=== PATIENT | female | born 1950 | race Caucasian/White ===

== ENCOUNTER 2017-09-04 11:16 | Inpatient (IN) | payer OTHER ==
[~2017-09-04] VITALS: Ht 157.5 cm; Wt 53.4 kg
[2017-09-04 12:27] LABS: BASO % 0.3 %; BASO ABS # 0.02 K/uL (0-0.2); EOS % 1.1 %; EOS ABS # 0.08 K/uL (0-0.5); HEMOGLOBIN 14.9 g/dL (12.0-16.0); IG# 0.02 K/uL (0.00-0.02); LYMPH % 25.6 %; LYMPH ABS # 1.85 K/uL (1.2-3.4); MEAN CELL VOLUME 84.8 fL (80-100); MEAN CORPUSCULAR HEMOGLOBIN 29.4 pg (25-34); MEAN CORPUSCULAR HGB CONC 34.7 g/dl (32-36); MEAN PLATELET VOLUME 9.3 fL (7.4-10.4); MONO % 6.6 %; MONO ABS # 0.48 K/uL (0.11-0.59); NEUT % 66.1 %; NEUT ABS # 4.77 K/uL (1.4-6.5); PLATELET COUNT 302 K/uL (130-400); RED CELL DISTRIBUTION WIDTH CV 13.4 % (11.5-14.5); RED CELL DISTRIBUTION WIDTH SD 41.3 fL (36.4-46.3); WHITE BLOOD COUNT 7.22 K/uL (4.8-10.8)
[2017-09-04 12:43] LABS: ALBUMIN 3.5 gm/dl (3.4-5.0); ALT/SGPT 12 U/L (12-78); AST/SGOT 16 U/L (15-37); BLOOD UREA NITROGEN 9 mg/dl (7-18); CARBON DIOXIDE 27 mmol/L (21-32); GLUCOSE 94 mg/dl (70-99); LIPASE 168 U/L (73-393); POTASSIUM 3.8 mmol/L (3.5-5.1); SODIUM 135 mmol/L (136-145)
[2017-09-04 12:48] LABS: ALKALINE PHOSPHATASE 95 U/L (45-117); TOTAL PROTEIN 8.1 gm/dl (6.4-8.2)
--- NOTE | 2017-09-04 12:57 | DIAGNOSTIC IMAGING REPORT ---
L KNEE 3 VIEWS CLINICAL HISTORY: Left knee pain following fall. COMPARISON: None FINDINGS: Left femoral intramedullary erica with distal screws is partially imaged. Cortical thickening of the distal shaft of the left femur is chronic. Relative lucency favors osteopenia. There is an acute nondisplaced inferior patellar fracture. No additional fractures are present. IMPRESSION: 1. Acute nondisplaced inferior patellar fracture. 2. Small left knee joint effusion. 3. Relative lucency of visualized skeletal structures which favors osteopenia. Electronically signed by: Maciej Zafar M.D. 09/04/2017 12:56 PM Dictated Date/Time: 09/04/2017 12:55 PM
--- NOTE | 2017-09-04 12:58 | DIAGNOSTIC IMAGING REPORT ---
L SHOULDER MIN 2 VIEWS ROUTINE CLINICAL HISTORY: Left shoulder pain following fall. COMPARISON: None FINDINGS: Alignment of the left shoulder arthroplasty is in anatomic. Osteophytosis/heterotopic bone formation along the inferior glenoid is noted. No acute fracture is present. Alignment of the left acromioclavicular joint is anatomic. IMPRESSION: 1. No acute fracture or dislocation of the left shoulder. 2. Status post left shoulder arthroplasty. Hardware intact. Electronically signed by: Maciej Zafar M.D. 09/04/2017 12:57 PM Dictated Date/Time: 09/04/2017 12:56 PM
--- NOTE | 2017-09-04 13:00 | DIAGNOSTIC IMAGING REPORT ---
CHEST ONE VIEW PORTABLE HISTORY: Left-sided chest pain. fall COMPARISON: None. FINDINGS: The lungs are clear. Cardiac silhouette is normal in size. No pleural effusions. No pneumothorax. Left shoulder prosthesis. IMPRESSION: No acute process. Electronically signed by: Addison Arriola M.D. 09/04/2017 12:59 PM Dictated Date/Time: 09/04/2017 12:57 PM
--- NOTE | 2017-09-04 13:00 | DIAGNOSTIC IMAGING REPORT ---
PELVIS 1 OR 2 VIEW ROUTINE CLINICAL HISTORY: Fall. COMPARISON STUDY: No previous studies for comparison. FINDINGS: The sacroiliac joints and symphysis pubis are intact. No acute fracture within the pelvis or hips is identified. Left femoral internal fixation with trochanteric nail is noted. Healed intertrochanteric fracture is noted. IMPRESSION: 1. No acute fracture within the pelvis or hips. 2. Healed left femoral intertrochanteric fracture status post internal fixation. Electronically signed by: Maciej Zafar M.D. 09/04/2017 12:59 PM Dictated Date/Time: 09/04/2017 12:58 PM
[2017-09-04] MEDS ORDERED: MoRPHine SULFATE 4 MG/ML 1 ML CARP\\VIAL IV STA ×2 (14:32→15:11)
[2017-09-04] MEDS ORDERED: LABETALOL HCL IV 5 MG/ML 20ML IV STA (16:02)
[2017-09-04] MEDS ORDERED: HydrALAZINE HCL 20 MG/ML VIAL IV. STA (16:39)
[2017-09-04] MEDS ORDERED: HydrALAZINE HCL 20 MG/ML VIAL ONE (16:45)
[2017-09-04] MEDS ORDERED: ONDANSETRON INJ 2 MG/ML 2 ML VIAL IV PRN (17:15)
--- NOTE | 2017-09-04 18:12 | EMERGENCY ROOM VISIT NOTE ---
History Report prepared by Víctoribdiya: Fernie Aldrich Under the Supervision of: Dr. Chato Julian D.O. First contact with patient: 11:48 Chief Complaint: FALL Stated Complaint: FALL History of Present Illness The patient is a 67 year old female who presents to the Emergency Room with complaints of constant left knee pain s/p fall occurring just prior to arrival. The patient also complains of left shoulder pain. She states that she fell while walking [place] the [place] at the hospital when she fell. She states that it is normal for her to fall, as she has some difficulty walking since a previous hip fracture. The patient did not feel dizzy or lightheaded prior to falling. She states that she fell straight down and landed on her left shoulder and left knee. She did not lost consciousness. Patient denies any chest pain or shortness of breath. No weakness or numbness in her arms or legs. Source of History: patient Onset: Just prior to arrival Position: knee (left) Quality: other (pain s/p fall) Timing: constant Associated Symptoms: No LOC Note: Positive: left shoulder pain. Negative: dizziness or lightheadedness. Review of Systems See HPI for pertinent positives & negatives. A total of 10 systems reviewed and were otherwise negative. Past Medical & Surgical Medical Problems: (1) Hip fracture, left (2) HTN (hypertension) (3) Shoulder fracture, left Family History No pertinent family history stated. Social History Smoking Status: Current Every Day Smoker Marital Status: Current/Historical Medications No Active Prescriptions or Reported Meds Allergies Coded Allergies: No Known Allergies (Unverified , 09/04/17) Physical Exam Vital Signs Date Time Temp Pulse Resp B/P (MAP) Pulse Ox O2 Delivery O2 Flow Rate FiO2 09/04/17 17:23 75 18 189/86 100 09/04/17 17:01 75 100 09/04/17 17:00 189/86 09/04/17 16:56 81 100 09/04/17 16:51 78 198/122 100 09/04/17 16:50 74 18 198/122 100 Room Air 09/04/17 16:46 75 213/111 100 09/04/17 16:41 72 100 09/04/17 16:36 77 100 09/04/17 16:32 220/119 09/04/17 16:31 78 224/100 100 4/4/18 16:26 71 98 09/04/17 16:21 70 99 09/04/17 16:16 76 100 09/04/17 16:11 81 100 09/04/17 16:06 75 100 09/04/17 16:01 83 236/114 100 09/04/17 15:56 75 100 09/04/17 15:51 75 99 09/04/17 15:46 73 100 09/04/17 15:41 81 100 09/04/17 15:40 238/110 09/04/17 15:36 82 100 09/04/17 15:31 80 202/114 100 09/04/17 15:30 224/118 09/04/17 15:26 77 100 09/04/17 15:21 83 100 09/04/17 15:18 229/114 09/04/17 15:16 78 100 09/04/17 15:11 80 100 09/04/17 15:06 79 100 09/04/17 15:03 246/102 09/04/17 14:31 225/140 09/04/17 14:19 80 20 217/108 93 Room Air 09/04/17 14:12 217/108 09/04/17 14:10 193/135 09/04/17 12:27 74 09/04/17 12:02 192/122 09/04/17 11:21 36.5 88 18 154/95 100 Room Air Physical Exam GENERAL: Sitting up in bed, holding left shoulder with right arm, mild distress , nontoxic. HEAD: normal cephalic. Small abrasion over the middle upper portion of the lip. EYE EXAM: normal conjunctiva, PERRL and EOM's grossly intact OROPHARYNX: no exudate, no erythema, lips, buccal mucosa, and tongue normal and mucous membranes are moist EARS: TMs clear b/l NECK: supple, no nuchal rigidity, no adenopathy, non-tender CHEST: stable to compression anteriorly and posteriorly LUNGS: clear to auscultation. Normal chest wall mechanics HEART: no murmurs, S1 normal and S2 normal ABDOMEN: abdomen soft, non-tender, normo-active bowel sounds, no masses, no rebound or guarding. PELVIS: stable to compression anteriorly and posteriorly BACK: Back is symmetrical on inspection and there is no deformity, no midline tenderness, no CVA tenderness. UPPER EXTREMITIES: full active and passive range of motion of all joints without tenderness to palpation with exception of left humerus which is acutely tender to palpation. LOWER EXTREMITIES: full active and passive range of motion of all joints without tenderness to palpation with exception of left knee which is acutely tender to palpation with abrasion and contusion. NEURO EXAM: Normal sensorium, cranial nerves II-XII grossly intact, normal speech, no gross weakness of arms. GCS: 15. Medical Decision & Procedures ER Provider Diagnostic Interpretation: Radiology results as stated below per my review and the radiologist's interpretation: L SHOULDER MIN 2 VIEWS ROUTINE FINDINGS: Alignment of the left shoulder arthroplasty is in anatomic. Osteophytosis/heterotopic bone formation along the inferior glenoid is noted. No acute fracture is present. Alignment of the left acromioclavicular joint is anatomic. IMPRESSION: 1. No acute fracture or dislocation of the left shoulder. 2. Status post left shoulder arthroplasty. Hardware intact. Electronically signed by: Maciej Zafar M.D. 09/04/2017 12:57 PM PELVIS 1 OR 2 VIEW ROUTINE FINDINGS: The sacroiliac joints and symphysis pubis are intact. No acute fracture within the pelvis or hips is identified. Left femoral internal fixation with trochanteric nail is noted. Healed intertrochanteric fracture is noted. IMPRESSION: 1. No acute fracture within the pelvis or hips. 2. Healed left femoral intertrochanteric fracture status post internal fixation. Electronically signed by: Maciej Zafar M.D. 09/04/2017 12:59 PM L KNEE 3 VIEWS FINDINGS: Left femoral intramedullary erica with distal screws is partially imaged. Cortical thickening of the distal shaft of the left femur is chronic. Relative lucency favors osteopenia. There is an acute nondisplaced inferior patellar fracture. No additional fractures are present. IMPRESSION: 1. Acute nondisplaced inferior patellar fracture. 2. Small left knee joint effusion. 3. Relative lucency of visualized skeletal structures which favors osteopenia. Electronically signed by: Maciej Zafar M.D. 09/04/2017 12:56 PM CHEST ONE VIEW PORTABLE FINDINGS: The lungs are clear. Cardiac silhouette is normal in size. No pleural effusions. No pneumothorax. Left shoulder prosthesis. IMPRESSION: No acute process. Electronically signed by: Addison Arriola M.D. 09/04/2017 12:59 PM Laboratory Results 09/04/17 12:15 Red Blood Count 5.07, Mean Corpuscular Volume 84.8, Mean Corpuscular Hemoglobin 29.4, Mean Corpuscular Hemoglobin Concent 34.7, Mean Platelet Volume 9.3, Neutrophils (%) (Auto) 66.1, Lymphocytes (%) (Auto) 25.6, Monocytes (%) (Auto) 6.6, Eosinophils (%) (Auto) 1.1, Basophils (%) (Auto) 0.3, Neutrophils # (Auto) 4.77, Lymphocytes # (Auto) 1.85, Monocytes # (Auto) 0.48, Eosinophils # (Auto) 0.08, Basophils # (Auto) 0.02 09/04/17 12:15 Test 09/04/17 12:15 09/04/17 18:00 White Blood Count 7.22 K/uL (4.8-10.8) Red Blood Count 5.07 M/uL (4.2-5.4) Hemoglobin 14.9 g/dL (12.0-16.0) Hematocrit 43.0 % (37-47) Mean Corpuscular Volume 84.8 fL (80-100) Mean Corpuscular Hemoglobin 29.4 pg (25-34) Mean Corpuscular Hemoglobin Concent 34.7 g/dl (32-36) Platelet Count 302 K/uL (130-400) Mean Platelet Volume 9.3 fL (7.4-10.4) Neutrophils (%) (Auto) 66.1 % Lymphocytes (%) (Auto) 25.6 % Monocytes (%) (Auto) 6.6 % Eosinophils (%) (Auto) 1.1 % Basophils (%) (Auto) 0.3 % Neutrophils # (Auto) 4.77 K/uL (1.4-6.5) Lymphocytes # (Auto) 1.85 K/uL (1.2-3.4) Monocytes # (Auto) 0.48 K/uL (0.11-0.59) Eosinophils # (Auto) 0.08 K/uL (0-0.5) Basophils # (Auto) 0.02 K/uL (0-0.2) RDW Standard Deviation 41.3 fL (36.4-46.3) RDW Coefficient of Variation 13.4 % (11.5-14.5) Immature Granulocyte % (Auto) 0.3 % Immature Granulocyte # (Auto) 0.02 K/uL (0.00-0.02) Anion Gap 5.0 mmol/L (3-11) Est Creatinine Clear Calc Drug Dose 44.4 ml/min Estimated GFR () 68.5 Estimated GFR (Non- 59.1 BUN/Creatinine Ratio 9.2 (10-20) Calcium Level 9.0 mg/dl (8.5-10.1) Total Bilirubin 0.5 mg/dl (0.2-1) Direct Bilirubin 0.1 mg/dl (0-0.2) Aspartate Amino Transf (AST/SGOT) 16 U/L (15-37) Alanine Aminotransferase (ALT/SGPT) 12 U/L (12-78) Alkaline Phosphatase 95 U/L (45-117) Total Protein 8.1 gm/dl (6.4-8.2) Albumin 3.5 gm/dl (3.4-5.0) Lipase 168 U/L (73-393) Laboratory results per my review. Medications Administered Medications (Trade) Dose Ordered Sig/Radames Route Start Time Stop Time Status Last Admin Dose Admin Morphine Sulfate (MoRPHine SULFATE INJ) 3 mg NOW STAT IV 09/04/17 14:32 09/04/17 14:33 DC 09/04/17 14:49 3 MG Morphine Sulfate (MoRPHine SULFATE INJ) 2 mg NOW STAT IV 09/04/17 15:11 09/04/17 15:12 DC 09/04/17 15:18 2 MG Labetalol HCl (Normodyne IV) 10 mg NOW STAT IV 09/04/17 16:02 09/04/17 16:03 DC 09/04/17 16:15 10 MG Hydralazine HCl (HydrALAZINE INJ) 20 mg STK-MED ONCE .ROUTE 09/04/17 16:45 09/04/17 16:46 DC 09/04/17 16:47 10 MG ECG Per My Interpretation Indication: other (fall) Rate (beats per minute): 89 Rhythm: sinus rhythm Findings: other (Normal axis. Non-specific ST wave change in lateral and inferior leads.) Comparison ECG Date: no prior available ED Course ED COURSE: Vital signs were reviewed and showed hypertension The patients medical record was reviewed The above diagnostic studies were performed and reviewed. ED treatments and interventions as stated above. 1152: The patient was evaluated in room B12B. A complete history and physical examination was performed. 1330: I updated the patient on her results. She is still having pain, and is still hypertensive. 1432: Ordered Morphine Sulfate 3 mg IV. 1511: Ordered Morphine Sulfate 2 mg IV. 1602: Ordered Normodyne 10 mg IV. 1604: Upon reevaluation, the patient is resting. I discussed my findings with the patient and she understands and agrees with the treatment plan. Based on the patients age, coexisting illnesses, exam and lab findings the decision to treat as an inpatient was made. The patient remained stable while under my care. The patient will be evaluated for further management. Medical Decision Differential diagnoses include major intracranial, cervical, spinal, thoracic, abdominal, pelvic and neurologic injury. Fracture, contusion, sprain, strain, laceration, abrasions included as well. Patient is a 67-year-old female who presents the ER following a fall. The family notes that she intermittently falls since she broke her left hip. She has no other complaints. No headaches. She denies passing out. CBC along with BMP, LFTs, bilirubin and troponin was negative. Lipase is normal. X-rays of her knee shows patellar fracture. X-ray of her left shoulder was negative. Throughout her stay she remained persistently hypertensive with systolics in the 200s. She was given morphine and her pain was treated. Blood pressure did not improve. She is supposed be on oral medications but has not taken this for years. With her EKG showing the ST depressions troponin was obtained and was negative. She has no chest pain or shortness of breath. I do favor this likely chronic with her persistently elevated pressure she was given labetalol. Discussed with internal medicine she was admitted for further workup. Medication Reconcilliation Current Medication List: was personally reviewed by me Blood Pressure Screening Patient's blood pressure: Elevated blood pressure Blood pressure disposition: Elevated BP felt to be situational Consults Time Called: 1600 Consulting Physician: Josie DOAN - Joel Hospitalist Returned Call: 1604 I reviewed the patient's case with Josie DOAN. Joel will evaluate the patient for further management. Impression Primary Impression: Patellar fracture Additional Impressions: Fall Hypertension Scribe Attestation The scribe's documentation has been prepared under my direction and personally reviewed by me in its entirety. I confirm that the note above accurately reflects all work, treatment, procedures, and medical decision making performed by me. Departure Information Dispostion Being Evaluated By Hospitalist Prescriptions No Active Prescriptions or Reported Meds Referrals No Doctor, Assigned (PCP) Forms HOME CARE DOCUMENTATION FORM, IMPORTANT VISIT INFORMATION Patient Instructions ED Fx Knee, My [facility] Problem Qualifiers Primary Impression: Patellar fracture Encounter type: initial encounter Fracture type: closed Fracture morphology : unspecified fracture morphology Fracture alignment: nondisplaced Laterality: unspecified laterality Qualified Codes: S82.009A - Unspecified fracture of unspecified patella, initial encounter for closed fracture Additional Impressions: Fall Encounter type: initial encounter Qualified Codes: W19.XXXA - Unspecified fall, initial encounter Hypertension Hypertension type: unspecified Qualified Codes: I10 - Essential (primary) hypertension
[2017-09-04 18:22] VITALS: BP 203/79; PULSE 81; TEMP 36.5; O2SAT 99
[2017-09-04 18:38] VITALS: Ht 157.5 cm; Wt 53.4 kg
--- NOTE | 2017-09-04 18:47 | History and Physical ---
History & Physical Date & Time of Service: Sep 04, 2017 ~16:30 Chief Complaint: Fall Primary Care Physician: Pierce Herrera D.O. History of Present Illness Source: patient 67-year-old female who presents to the ED after suffering a fall and developing left knee pain. Patient was here at the hospital visiting her grandchild. She was walking down the [place] when suddenly her legs give out from under her and she fell landing on her left knee. Patient denies any loss of consciousness or associated lightheadedness or dizziness. No chest pain or shortness of breath. She denies headache and blurred vision. She reports she has been feeling well recently. Patient does report that she self stopped her blood pressure medications over a year ago. No abdominal pain, nausea, vomiting , or diarrhea. She denies fever and chills. No urinary symptoms. In the ED, patient is found to have an acute nondisplaced left patellar fracture. She is also found to have significantly elevated blood pressures with systolics in the 220s. She was given labetalol 10 mg IV without much improvement. I then ordered hydralazine 10 mg IV and blood pressure is slowly starting to come down. Past Medical/Surgical History Medical Problems: (1) Hip fracture, left Permanent Comment: S/P repair Status: Chronic (2) HTN (hypertension) Status: Chronic (3) Shoulder fracture, left Permanent Comment: S/P repair Status: Chronic Family History No significant family history Social History Smoking Status: Current Every Day Smoker Alcohol Use: occasionally Allergies Coded Allergies: No Known Allergies (Unverified , 09/04/17) Home Medications No Active Prescriptions or Reported Meds Review of Systems ROS per HPI, all other systems reviewed and negative Physical Exam Vital Signs Date Time Temp Pulse Resp B/P (MAP) Pulse Ox O2 Delivery O2 Flow Rate FiO2 09/04/17 16:50 74 18 198/122 100 Room Air 09/04/17 16:36 77 100 09/04/17 16:32 220/119 09/04/17 16:31 78 224/100 100 09/04/17 16:26 71 98 09/04/17 16:21 70 99 09/04/17 16:16 76 100 09/04/17 16:11 81 100 09/04/17 16:06 75 100 09/04/17 16:01 83 236/114 100 09/04/17 15:56 75 100 09/04/17 15:51 75 99 09/04/17 15:46 73 100 09/04/17 15:41 81 100 09/04/17 15:40 238/110 09/04/17 15:36 82 100 09/04/17 15:31 80 202/114 100 09/04/17 15:30 224/118 09/04/17 15:26 77 100 09/04/17 15:21 83 100 09/04/17 15:18 229/114 09/04/17 15:16 78 100 09/04/17 15:11 80 100 09/04/17 15:06 79 100 09/04/17 15:03 246/102 09/04/17 14:31 225/140 09/04/17 14:19 80 20 217/108 93 Room Air 09/04/17 14:12 217/108 09/04/17 14:10 193/135 09/04/17 12:27 74 09/04/17 12:02 192/122 09/04/17 11:21 36.5 88 18 154/95 100 Room Air General Appearance: WD/WN, no apparent distress, + thin Head: normocephalic, atraumatic Eyes: normal inspection, EOMI, sclerae normal ENT: hearing grossly normal, + pertinent finding (Mucous membranes moist) Neck: supple, no JVD, trachea midline Respiratory/Chest: lungs clear, normal breath sounds, no respiratory distress Cardiovascular: regular rate, rhythm, no edema, normal peripheral pulses Abdomen/GI: normal bowel sounds, non tender, soft, no organomegaly Extremities/Musculoskelatal: no calf tenderness, normal capillary refill, + pertinent finding (immobilizer in place to left lower extremity) Neurologic/Psych: no motor/sensory deficits, alert, normal mood/affect, oriented x 3 Skin: normal color, warm/dry Diagnostics Laboratory Results Results Past 24 Hours Test 09/04/17 12:15 Range/Units White Blood Count 7.22 4.8-10.8 K/uL Red Blood Count 5.07 4.2-5.4 M/uL Hemoglobin 14.9 12.0-16.0 g/dL Hematocrit 43.0 37-47 % Mean Corpuscular Volume 84.8 80-100 fL Mean Corpuscular Hemoglobin 29.4 25-34 pg Mean Corpuscular Hemoglobin Concent 34.7 32-36 g/dl Platelet Count 302 130-400 K/uL Mean Platelet Volume 9.3 7.4-10.4 fL Neutrophils (%) (Auto) 66.1 % Lymphocytes (%) (Auto) 25.6 % Monocytes (%) (Auto) 6.6 % Eosinophils (%) (Auto) 1.1 % Basophils (%) (Auto) 0.3 % Neutrophils # (Auto) 4.77 1.4-6.5 K/uL Lymphocytes # (Auto) 1.85 1.2-3.4 K/uL Monocytes # (Auto) 0.48 0.11-0.59 K/uL Eosinophils # (Auto) 0.08 0-0.5 K/uL Basophils # (Auto) 0.02 0-0.2 K/uL RDW Standard Deviation 41.3 36.4-46.3 fL RDW Coefficient of Variation 13.4 11.5-14.5 % Immature Granulocyte % (Auto) 0.3 % Immature Granulocyte # (Auto) 0.02 0.00-0.02 K/uL Sodium Level 135 136-145 mmol/L Potassium Level 3.8 3.5-5.1 mmol/L Chloride Level 102 98-107 mmol/L Carbon Dioxide Level 27 21-32 mmol/L Anion Gap 5.0 3-11 mmol/L Blood Urea Nitrogen 9 7-18 mg/dl Creatinine 1.00 0.60-1.20 mg/dl Est Creatinine Clear Calc Drug Dose 44.4 ml/min Estimated GFR () 68.5 Estimated GFR (Non- 59.1 BUN/Creatinine Ratio 9.2 10-20 Random Glucose 94 70-99 mg/dl Calcium Level 9.0 8.5-10.1 mg/dl Total Bilirubin 0.5 0.2-1 mg/dl Direct Bilirubin 0.1 0-0.2 mg/dl Aspartate Amino Transf (AST/SGOT) 16 15-37 U/L Alanine Aminotransferase (ALT/SGPT) 12 12-78 U/L Alkaline Phosphatase 95 45-117 U/L Troponin I < 0.015 0-0.045 ng/ml Total Protein 8.1 6.4-8.2 gm/dl Albumin 3.5 3.4-5.0 gm/dl Lipase 168 73-393 U/L Diagnostic Radiology SHOULDER X-RAY IMPRESSION: 1. No acute fracture or dislocation of the left shoulder. 2. Status post left shoulder arthroplasty. Hardware intact. PELVIC X-RAY IMPRESSION: 1. No acute fracture within the pelvis or hips. 2. Healed left femoral intertrochanteric fracture status post internal fixation. LEFT KNEE X-RAY IMPRESSION: 1. Acute nondisplaced inferior patellar fracture. 2. Small left knee joint effusion. 3. Relative lucency of visualized skeletal structures which favors osteopenia. CXR IMPRESSION: No acute process. Impression Assessment and Plan HYPERTENSIVE URGENCY -Admit patient to telemetry -Patient presenting after suffering a mechanical fall and found to have an acute left patellar fracture and also significantly elevated blood pressures in the ED -BP as high as 246/102 in the ED -Patient asymptomatic, no signs of end organ damage -S/P labetalol 10 mg IV and hydralazine 10 mg IV with improvement in BPs -Patient self stopped blood pressure medications over a year ago -Was on lisinopril 10 mg daily and metoprolol tartrate 25 mg twice daily -Will resume lisinopril for now, consider resuming metoprolol in the morning to ensure we do not drop the blood pressure to suddenly NONDISPLACED LEFT PATELLAR FRACTURE - maintain immobilizer - outpatient ortho follow up DVT PROPHYLAXIS - SQ Lovenox DISPOSITION - In my clinical judgment this beneficiary meets acute admission criteria, established by [facility], that includes being hospitalized through two midnights. Attending Note: Patient is a 67 yr female with PMH of HTN (currently not on meds since 1 yr), H/ O falls and other problems presents with history of fall and left knee pain. Patient is a poor historian and is unsure about her medical history. She denied and any LOC, dizziness, chest pain, SOB, headache, change in vision. Complained of Left knee pain. X ray is suggestive of acute nondisplaced left patellar fracture. Admits to previous H/O falls resulting in fractures. She was found to have significant elevated BP in ED but was asymptomatic. Admits to following low salt diet. Physical Exam: Vitals signs as noted above General Appearance:Thin, no apparent distress Head: normocephalic, Atraumatic Eyes: normal inspection, EOMI, PERRL Neck: supple, Trachea midline Respiratory/Chest: Normal breath sounds, CTA Cardiovascular: S1, S2, No murmur Abdomen/GI:Soft, Non tender, Bowel sounds present Extremities/Musculoskelatal:normal inspection, no edema, Left knee in Brace Neurologic/Psych:AAOX3, grossly no focal neurological deficits Skin:normal color,warm Assessment and Plan: Hypertensive Urgency: Likely Uncontrolled HTN Vs situational Resume lisinopril, Metoprolol Hydralazine PRN Acute Nondisplaced inferior patellar fracture Pain control PT/OT Follow up with Ortho as outpatient I personally reviewed the record. Patient is interviewed and examined at bedside. Patient's care is coordinated with Josie Ren [employer]. Please refer to the documentation above for details of patient's presentation and for discussion of other issues. Resuscitation Status VTE Prophylaxis Will order VTE Prophylaxis: Yes
[2017-09-04] MEDS: LISINOPRIL 10 MG TAB PO SCH (19:17)
[2017-09-04 19:55] VITALS: BP 155/74; PULSE 78; O2SAT 96
[2017-09-04 20:00] VITALS: O2SAT 96
[2017-09-04] MEDS: HYDROCODONE/ACETAMIN 5/325MG TAB PO PRN (20:04)
--- NOTE | 2017-09-04 21:21 | Consultant Recommendations ---
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 C[employer]on Molding Machine Operator Recommendations Radiographs are reviewed. May be WBAT in knee immobilizer. Follow up as an outpatient with either Dr. Godoy, Baldo Almodovar Rogusky, Antholtz or Javier
[2017-09-04] MEDS: ENOXAPARIN 40 MG/0.4 ML SYR SC SCH (21:41)
[2017-09-04 23:50] VITALS: BP 167/75; PULSE 65; TEMP 36.7; O2SAT 98
[2017-09-05] VITALS (10 sets, daily range): BP systolic 106–206; BP diastolic 64–91; PULSE 53–86; TEMP 36.5–37; O2SAT 94–100
[2017-09-05 05:57] LABS: HEMATOCRIT 40.1 % (37-47); HEMOGLOBIN 13.2 g/dL (12.0-16.0); MEAN CELL VOLUME 85.9 fL (80-100); MEAN CORPUSCULAR HEMOGLOBIN 28.3 pg (25-34); MEAN CORPUSCULAR HGB CONC 32.9 g/dl (32-36); MEAN PLATELET VOLUME 9.6 fL (7.4-10.4); PLATELET COUNT 292 K/uL (130-400); RED CELL DISTRIBUTION WIDTH CV 13.5 % (11.5-14.5); RED CELL DISTRIBUTION WIDTH SD 42.3 fL (36.4-46.3); WHITE BLOOD COUNT 6.76 K/uL (4.8-10.8)
[2017-09-05] MEDS ORDERED: NURSING VERBAL MED ORDER ONE (06:00)
[2017-09-05] MEDS ORDERED: SODIUM CHLORIDE 0.9% 1000ML 1,000 ML IV SCH (06:15)
[2017-09-05 06:34] LABS: CALCIUM 8.5 mg/dl (8.5-10.1); CREATININE 0.9 mg/dl (0.60-1.20); POTASSIUM 3.7 mmol/L (3.5-5.1)
[2017-09-05] MEDS: LISINOPRIL 10 MG TAB PO SCH (08:49)
[2017-09-05] MEDS: HYDROCODONE/ACETAMIN 5/325MG TAB PO PRN (16:36)
[2017-09-05] MEDS ORDERED: METOPROLOL TARTRATE 25 MG TAB PO ONE (17:16)
--- NOTE | 2017-09-05 17:24 | Progress Note ---
Medicine Progress Note Date & Time of Visit: Sep 05, 2017 at 17:20. Subjective Seen earlier this morning Resting in bed, comfortable States she feels improved compared to yesterday Left knee pain also improving Denies dizziness headache chest pain shortness of breath Has not ambulated yet No other symptoms Objective Last 8 Hrs Date Time Temp Pulse Resp B/P (MAP) Pulse Ox O2 Delivery O2 Flow Rate FiO2 09/05/17 16:00 100 Room Air 09/05/17 15:38 72 204/88 (126) 09/05/17 15:37 36.7 67 24 206/64 (111) 100 Room Air 09/05/17 12:00 Room Air 09/05/17 11:51 36.9 67 16 159/84 (109) 97 Physical Exam: General-oriented 2 not in distress speaking in sentences no accessory muscle use Head- atraumatic Eyes- PERRL, EOMI, anicteric ENT- oropharynx clear Neck- supple, no JVD, no adenopathy, no thyromegaly; carotids +2/2 Lungs- clear breath sounds bilaterally Heart- regular rhythm; no murmur, normal rate Abdomen- normal bowel sounds, soft, nontender, nondistended Extremities- no pretibial edema, no calf tenderness; peripheral pulses intact Extremity: Mild erythema of the left knee, no edema/tenderness/warmth Neuro- alert, oriented x 2; no gross focal sensory motor deficits Skin- warm & dry Laboratory Results: Last 24 Hours Test 09/04/17 18:32 09/05/17 00:10 09/05/17 05:26 09/05/17 06:30 Prothrombin Time 10.0 SECONDS Prothromb Time International Ratio 1.0 Troponin I < 0.015 ng/ml < 0.015 ng/ml White Blood Count 6.76 K/uL Red Blood Count 4.67 M/uL Hemoglobin 13.2 g/dL Hematocrit 40.1 % Mean Corpuscular Volume 85.9 fL Mean Corpuscular Hemoglobin 28.3 pg Mean Corpuscular Hemoglobin Concent 32.9 g/dl RDW Standard Deviation 42.3 fL RDW Coefficient of Variation 13.5 % Platelet Count 292 K/uL Mean Platelet Volume 9.6 fL Sodium Level 134 mmol/L Potassium Level 3.7 mmol/L Chloride Level 102 mmol/L Carbon Dioxide Level 27 mmol/L Anion Gap 5.0 mmol/L Blood Urea Nitrogen 13 mg/dl Creatinine 0.90 mg/dl Est Creatinine Clear Calc Drug Dose 49.3 ml/min Estimated GFR () 77.8 Estimated GFR (Non- 67.1 BUN/Creatinine Ratio 14.7 Random Glucose 85 mg/dl Calcium Level 8.5 mg/dl Urine Color DK YELLOW Urine Appearance CLOUDY Urine pH 5.0 Urine Specific [place] 1.019 Urine Protein NEG Urine Glucose (UA) NEG Urine Ketones NEG Urine Occult Blood NEG Urine Nitrite NEG Urine Bilirubin NEG Urine Urobilinogen NEG Urine Leukocyte Esterase MODERATE Urine WBC (Auto) >30 /hpf Urine RBC (Auto) 0-4 /hpf Urine Hyaline Casts (Auto) 10-30 /lpf Urine Epithelial Cells (Auto) >30 /lpf Urine Bacteria (Auto) 3+ Date/Time Source Procedure Growth Status 09/05/17 06:30 Urine , Clean Catch Urine Culture Pending Received Assessment & Plan HYPERTENSIVE URGENCY -Patient presenting after suffering a mechanical fall and found to have an acute left patellar fracture and also significantly elevated blood pressures in the ED -BP as high as 246/102 in the ED -Patient asymptomatic, no signs of end organ damage -S/P labetalol 10 mg IV and hydralazine 10 mg IV with improvement in BPs -Patient self stopped blood pressure medications over a year ago --Blood pressure in the 170s medications this morning Lisinopril 10 mg p.o. continue --Upon reevaluation in the afternoon around 5 PM, blood pressure noted to be systolic 200s Discussed with RN, patient is apparently transferring and was in pain during that time We will start metoprolol 25 mg p.o. twice daily Order clonidine as needed NONDISPLACED LEFT PATELLAR FRACTURE - maintain immobilizer as per orthopedic surgery Follow-up with orthopedic surgery in 2 weeks PT recommending rehab PRN analgesics and ice packs DVT PROPHYLAXIS - SQ Lovenox DISPOSITION We will need to transition to rehab Current Inpatient Medications: Current Inpatient Medications Medications (Trade) Dose Ordered Sig/Radames Route Start Time Stop Time Status Last Admin Dose Admin Enoxaparin Sodium (Lovenox Inj) 40 mg Q24H SC 09/04/17 21:00 10/04/17 20:59 09/04/17 21:41 40 MG Acetaminophen (Tylenol Tab) 650 mg Q4H PRN PO 4/4/18 17:15 10/04/17 17:14 Ondansetron HCl (Zofran Inj) 4 mg Q6H PRN IV 09/04/17 17:15 10/04/17 17:14 Acetaminophen/ Hydrocodone Bitart ([place] 5/325 Tab) 1 tab Q6H PRN PO 09/04/17 17:15 09/18/17 17:14 09/05/17 16:36 1 TAB Lisinopril (Zestril Tab) 10 mg QAM PO 09/04/17 17:15 10/04/17 17:14 09/05/17 08:49 10 MG
[2017-09-05] MEDS: ENOXAPARIN 40 MG/0.4 ML SYR SC SCH (20:51)
[2017-09-05] MEDS: CLONIDINE HCL 0.1 MG TAB PO PRN (20:52)
[2017-09-06] VITALS (17 sets, daily range): BP systolic 160–228; BP diastolic 67–113; PULSE 56–84; TEMP 36.4–37; O2SAT 96–100
[2017-09-06] MEDS: HYDROCODONE/ACETAMIN 5/325MG TAB PO PRN (04:25)
[2017-09-06] MEDS: LISINOPRIL 10 MG TAB PO SCH (07:41)
[2017-09-06] MEDS ORDERED: METOPROLOL TARTRATE 25 MG TAB PO SCH (09:00)
[2017-09-06] MEDS ORDERED: AMLODIPINE BESYLATE 5 MG TAB PO ONE ×2 (11:15→18:30)
--- NOTE | 2017-09-06 11:18 | Progress Note ---
Medicine Progress Note Date & Time of Visit: Sep 06, 2017 at 11:18. Subjective Seen earlier today in the morning Patient comfortable watching TV oriented 3 States she feels better compared to the previous day Denies headache chest pain shortness of breath palpitations dizziness nausea Left knee pain better In the afternoon the patient was noted to have elevated blood pressure, not feeling well Patient examined, alert oriented 2, reports mild headache, denies focal neurologic deficits Neuro exam performed no focal neuro deficits Amlodipine ordered Informed by RN patient was having elevated blood blood pressure Patient seen again, states she does not feel too good, cannot elaborate No focal neurologic deficits noted Clonidine ordered Nicardipine ordered but was not started as blood pressure improved to 160s Transfer to ICU held Objective Last 8 Hrs Date Time Temp Pulse Resp B/P (MAP) Pulse Ox O2 Delivery O2 Flow Rate FiO2 09/06/17 08:01 36.6 84 18 160/81 (107) 96 09/06/17 08:00 100 Room Air 09/06/17 04:00 Room Air 09/06/17 03:28 37.0 61 18 169/89 (115) 100 Room Air Physical Exam: General-oriented 2 not in distress speaking in sentences no accessory muscle use Head- atraumatic Eyes- PERRL, EOMI, anicteric ENT- oropharynx clear Neck- supple, no JVD, no adenopathy Lungs- clear breath sounds bilaterally, no rales or wheezes Heart- regular rhythm; no murmur, normal rate Abdomen- normal bowel sounds, soft, nontender, nondistended Extremities- no pretibial edema, no calf tenderness; peripheral pulses intact Extremity: Mild erythema of the left knee, no edema/tenderness/warmth Neuro- alert, oriented x 2; no gross focal sensory motor deficits Skin- warm & dry Assessment & Plan HYPERTENSIVE URGENCY -Patient presenting after suffering a mechanical fall and found to have an acute left patellar fracture and also significantly elevated blood pressures in the ED -BP as high as 246/102 in the ED -- Heart rate noted to be in the 50s this morning, I metoprolol discontinued --Check renal ultrasound to rule out renal artery stenosis --Check brain MRI to rule out CVA --Increase amlodipine to 10 mg p.o. daily May need to transition from lisinopril to clonidine 0.1 mg twice daily this patient also has CKD stage III --Monitor closely NONDISPLACED LEFT PATELLAR FRACTURE - maintain immobilizer as per orthopedic surgery Follow-up with orthopedic surgery in 2 weeks PT recommending rehab PRN analgesics and ice packs DVT PROPHYLAXIS - SQ Lovenox DISPOSITION We will need to transition to rehab Current Inpatient Medications: Current Inpatient Medications Medications (Trade) Dose Ordered Sig/Radames Route Start Time Stop Time Status Last Admin Dose Admin Enoxaparin Sodium (Lovenox Inj) 40 mg Q24H SC 09/04/17 21:00 10/04/17 20:59 09/05/17 20:51 40 MG Acetaminophen (Tylenol Tab) 650 mg Q4H PRN PO 09/04/17 17:15 10/04/17 17:14 Acetaminophen/ Hydrocodone Bitart ([place] 5/325 Tab) 1 tab Q6H PRN PO 09/04/17 17:15 09/18/17 17:14 09/06/17 04:25 1 TAB Lisinopril (Zestril Tab) 10 mg QAM PO 09/04/17 17:15 10/04/17 17:14 09/06/17 07:41 10 MG Metoprolol Tartrate (Lopressor Tab) 25 mg BID PO 09/06/17 09:00 10/06/17 08:59 Clonidine HCl (Catapres Tab) 0.1 mg Q6H PRN PO 09/05/17 18:15 10/05/17 18:14 09/05/17 20:52 0.1 MG
[2017-09-06] MEDS: ACETAMINOPHEN 325 MG TAB PO PRN (13:56)
[2017-09-06] MEDS ORDERED: ENALAPRILAT IV 1.25 MG in DEXTROSE 5% 25ML 25 ML IV ONE (14:00)
[2017-09-06] MEDS: CLONIDINE HCL 0.1 MG TAB PO PRN ×2 (15:08→21:10)
[2017-09-06] MEDS ORDERED: NiCARDipine IV 25 MG in SODIUM CHLORIDE 0.9% 250ML 240 ML IV STA (15:08)
[2017-09-06] MEDS ORDERED: NiCARDipine IV 25 MG in SODIUM CHLORIDE 0.9% 250ML 240 ML IV PRN (15:15)
--- NOTE | 2017-09-06 18:53 | DIAGNOSTIC IMAGING REPORT ---
CT HEAD WITHOUT CONTRAST (CT) CLINICAL HISTORY: Headache. Hypertension. COMPARISON STUDY: No previous studies for comparison. TECHNIQUE: Axial CT of the brain is performed from the vertex to the skull base. IV contrast was not administered for this examination. A dose lowering technique was utilized adhering to the principles of ALARA. CT DOSE: 537.48 mGy.cm FINDINGS: No intra or extra-axial mass lesions are visualized. There is no CT evidence of acute cortical infarction. There is no evidence of midline shift. There is no acute hemorrhage. No calvarial fractures are visualized. There are moderate white matter hypodensities likely on a small vessel basis. There are lacunar infarcts within the left thalamus and both basal ganglia. There is no evidence of pathologic ventricular dilatation. There is no evidence of acute sinusitis IMPRESSION: 1. Moderately extensive white matter disease with bilateral lacunar infarcts 2. No acute intracranial findings. Electronically signed by: Ayush Fletcher M.D. 09/06/2017 6:52 PM Dictated Date/Time: 09/06/2017 6:51 PM
[2017-09-06 21:29] LABS: CALCIUM 8.6 mg/dl (8.5-10.1); CREATININE 0.88 mg/dl (0.60-1.20)
[2017-09-06] MEDS ORDERED: HydrALAZINE HCL 20 MG/ML VIAL IV. STA (23:37)
--- NOTE | 2017-09-06 23:55 | Progress Note ---
Progress Note Date of Service Sep 06, 2017. Progress Note I was called by the nurse that the blood pressure is elevated and it was 196/91. The patient did not have any symptoms whatsoever. Also the on-call regular radiologist called and gave the preliminary reading for MRI which was reported as right temporal occipital infarct and right frontal infarct as well. We need to wait for the final reading tomorrow morning. The patient was examined and seen by me. Denies any symptoms suggestive of stroke and/or TIA. Blood pressure is noted to be high at 196/91 pulse was 64, no apparent distress and no focal neurological deficit. 5 mg of IV hydralazine 1 given. The report was conveyed to the patient but it stresses that he had to wait for final reading tomorrow. The patient was put under stroke observation. Dr. Michael Slater
[2017-09-07] VITALS (9 sets, daily range): BP systolic 159–222; BP diastolic 71–105; PULSE 54–75; TEMP 36.4–37; O2SAT 97–100
[2017-09-07] MEDS ORDERED: HydrALAZINE HCL 20 MG/ML VIAL IV. STA (02:07)
[2017-09-07] MEDS: CLONIDINE HCL 0.1 MG TAB PO PRN ×2 (04:41→18:09)
[2017-09-07] MEDS: HYDROCODONE/ACETAMIN 5/325MG TAB PO PRN (04:42)
--- NOTE | 2017-09-07 05:17 | DIAGNOSTIC IMAGING REPORT ---
BRAIN WITHOUT CONTRAST CLINICAL HISTORY: 67 years-old Female presenting with hypertensive urgency, r/o cva. TECHNIQUE: Multisequence, multiplanar MR imaging of the brain was performed without the use of intravenous contrast. IV contrast: None. COMPARISON: CT head performed earlier the same day. FINDINGS: Motion artifact degrades image quality. This does not significantly limit diagnostic sensitivity. Proportional ventricular and sulcal prominence, likely age-related parenchymal volume loss. Periventricular and subcortical white matter T2/FLAIR hyperintensity, nonspecific but likely indicative of chronic small vessel ischemic change. Old lacunar infarcts noted in the right upper ijeoma and bilateral thalami. No mass effect or midline shift. Acute ischemia in the right posterior cerebral artery territory involving the medial right temporo-occipital region. Regional sulcal effacement and faint FLAIR hyperintensity. Additional acute lacunar infarct in the periventricular white matter adjacent to the frontal horn of the right lateral ventricle. Faint cortical T1 hyperintensity in the paramedian right occipital lobe may represent laminar necrosis. No evidence of hemorrhage. No extra-axial fluid collection. T2 skull base flow voids preserved. Bone marrow signal intensity within the calvarium within normal limits. IMPRESSION: 1. Acute right ACADEMIC SUPPORT ASSISTANT territory infarct involving the right temporal occipital region. No hemorrhagic conversion. FLAIR hyperintensity in this region suggests an infarct greater than 6 hours old. 2. Acute lacunar infarct in the right periventricular white matter. 3. Extensive chronic small vessel ischemic change with old lacunar infarcts. These findings were discussed with Dr. Slater by Dr. Jacobs on 09/06/2017 23:34 AM. Electronically signed by: Tevin Ramirez M.D. 09/07/2017 5:15 AM Dictated Date/Time: 09/07/2017 5:08 AM
[2017-09-07 06:07] LABS: HEMATOCRIT 39.3 % (37-47); HEMOGLOBIN 13.3 g/dL (12.0-16.0); MEAN CELL VOLUME 85.6 fL (80-100); MEAN CORPUSCULAR HGB CONC 33.8 g/dl (32-36); MEAN PLATELET VOLUME 9.5 fL (7.4-10.4); PLATELET COUNT 297 K/uL (130-400); RED CELL DISTRIBUTION WIDTH CV 13.4 % (11.5-14.5); RED CELL DISTRIBUTION WIDTH SD 41.8 fL (36.4-46.3); WHITE BLOOD COUNT 6.27 K/uL (4.8-10.8)
[2017-09-07 06:45] LABS: CALCIUM 8.6 mg/dl (8.5-10.1); CREATININE 0.68 mg/dl (0.60-1.20); POTASSIUM 3.4 mmol/L (3.5-5.1)
--- NOTE | 2017-09-07 06:57 | DIAGNOSTIC IMAGING REPORT ---
DUPLEX RENAL ARTERY CLINICAL HISTORY: 67 years-old Female presenting with r/o renal artery stenosis, hypertensive urgency, stroke. TECHNIQUE: Real-time grayscale and color and spectral Doppler ultrasound imaging of the kidneys was performed. COMPARISON: None. FINDINGS: Right kidney: Normal echogenicity of renal parenchyma. Right kidney measures 9.2 cm. No hydronephrosis. No convincing evidence of calculus or mass. Intrarenal resistive indices range from 0.55 to 0.59. Normal intrarenal arterial waveforms. Renal artery patent with peak systolic velocity 153 cm/s proximally, 144 cm/s in the midportion, and 85 cm/s distally. Renal vein patent. Left kidney: Normal echogenicity of renal parenchyma. Left kidney measures 10.7 cm. No hydronephrosis. No convincing evidence of calculus or mass. Intrarenal resistive indices range from 0.67 to 0.71. Normal intrarenal arterial waveforms. Renal artery patent with peak systolic velocity 77 cm/s proximally, 194 cm/s in the midportion, and 77 cm/s distally. Renal vein patent. Abdominal aorta: Atherosclerosis. Peak systolic velocity 75 cm/s. Ratio of right renal artery PSV/aortic PSV: 2.04. Ratio of left renal artery PSV/aortic PSV: 2.59. Other: None. Reference ranges: Normal main renal artery peak systolic velocity less than 180 cm/s. Ratio of renal artery PSV to aortic PSV less than 3.5 equates to normal or less than 60% stenosis. Only one of the two criteria listed needs to be met for diagnosis. IMPRESSION: 1. No evidence of hemodynamically significant renal artery stenosis. Electronically signed by: Tevin Ramirez M.D. 09/07/2017 6:56 AM Dictated Date/Time: 09/07/2017 6:52 AM
[2017-09-07] MEDS ORDERED: ASPIRIN 81 MG ECTAB PO ONE (07:09)
[2017-09-07] MEDS ORDERED: CLOPIDOGREL BISULFATE 75 MG TAB PO ONE (07:15)
[2017-09-07] MEDS ORDERED: PHARMACIST DISCHARGE MED REC CONSULT PRN (08:15)
[2017-09-07] MEDS ORDERED: CLONIDINE HCL 0.1 MG TAB PO SCH (09:00)
[2017-09-07] MEDS ORDERED: AMLODIPINE BESYLATE 5 MG TAB PO SCH ×2 (09:00)
[2017-09-07] MEDS: ATORVASTATIN 40 MG TAB PO SCH (09:08)
--- NOTE | 2017-09-07 09:14 | Progress Note ---
Medicine Progress Note Date & Time of Visit: Sep 07, 2017 at 08:57. Subjective Brain MRI report reviewed Aspirin and Plavix ordered Blood pressure systolic 170s On exam patient was sleeping easily arousable Oriented to person, had to be cued for place and time States she feels okay Denies focal weakness or numbness Denies headache dizziness nausea chest pain shortness of breath No other symptoms Objective Last 8 Hrs Date Time Temp Pulse Resp B/P (MAP) Pulse Ox O2 Delivery O2 Flow Rate FiO2 09/07/17 07:51 36.8 54 19 170/71 (104) 97 Room Air 09/07/17 06:22 159/86 (110) 09/07/17 04:00 37.0 18 186/81 (116) 99 Room Air 09/07/17 04:00 Room Air 09/07/17 01:20 193/86 (121) Physical Exam: General-oriented 2 not in distress speaking in sentences no accessory muscle use Head- atraumatic Eyes- anicteric Neck- supple, no JVD Lungs- clear breath sounds bilaterally, no wheezing no rales Heart- regular rhythm; no murmur, normal rate Abdomen- normal bowel sounds, soft, nontender, nondistended Extremities- no pretibial edema, no calf tenderness; peripheral pulses intact Extremity: Mild erythema of the left knee, no edema/tenderness/warmth Neuro- alert, oriented x 2; no gross focal sensory motor deficits Skin- warm & dry Laboratory Results: Last 24 Hours Test 09/06/17 13:34 09/06/17 19:23 09/07/17 05:48 Bedside Glucose 91 mg/dl Sodium Level 135 mmol/L 133 mmol/L Potassium Level 4.0 mmol/L 3.4 mmol/L Chloride Level 104 mmol/L 102 mmol/L Carbon Dioxide Level 28 mmol/L 22 mmol/L Anion Gap 3.0 mmol/L 9.0 mmol/L Blood Urea Nitrogen 14 mg/dl 11 mg/dl Creatinine 0.88 mg/dl 0.68 mg/dl Est Creatinine Clear Calc Drug Dose 50.4 ml/min 65.3 ml/min Estimated GFR () 79.9 106.4 Estimated GFR (Non- 68.9 91.8 BUN/Creatinine Ratio 15.6 16.6 Random Glucose 96 mg/dl 93 mg/dl Calcium Level 8.6 mg/dl 8.6 mg/dl White Blood Count 6.27 K/uL Red Blood Count 4.59 M/uL Hemoglobin 13.3 g/dL Hematocrit 39.3 % Mean Corpuscular Volume 85.6 fL Mean Corpuscular Hemoglobin 29.0 pg Mean Corpuscular Hemoglobin Concent 33.8 g/dl RDW Standard Deviation 41.8 fL RDW Coefficient of Variation 13.4 % Platelet Count 297 K/uL Mean Platelet Volume 9.5 fL Triglycerides Level 107 mg/dl Cholesterol Level 147 mg/dl HDL Cholesterol 47 mg/dl LDL Cholesterol, Calculated 79 mg/dl VLDL Cholesterol, Calculated 21 mg/dl Cholesterol/HDL Ratio 3.1 Assessment & Plan ACUTE CVA R COUPON MANIFEST CLERK TERRITORY (TEMPORAL/OCCIPITAL/PERIVENTRICULAR) -- does not meet criteria for TPA unclear when deficits started, deficits are minimal -- MRA head and neck echo -- Aspirin, Plavix, Lipitor -- BP goal: not to exceed systolic 200 PRN Clonidine for syst bp > 200 -- PT /OT -- discussed with Dr. Baxter Brain MRI 1. Acute right COUPON MANIFEST CLERK territory infarct involving the right temporal occipital region. No hemorrhagic conversion. FLAIR hyperintensity in this region suggests an infarct greater than 6 hours old. 2. Acute lacunar infarct in the right periventricular white matter. 3. Extensive chronic small vessel ischemic change with old lacunar infarcts. HYPERTENSIVE URGENCY -Patient presenting after suffering a mechanical fall and found to have an acute left patellar fracture and also significantly elevated blood pressures in the ED -BP as high as 246/102 in the ED -- Heart rate noted to be in the 50s, metoprolol discontinued renal ultrasound: no renal artery stenosis -- hold scheduled BP medication today to allow for permissive hypertension in light of acute CVA PRN Clonidine for systolic bp > 200 NONDISPLACED LEFT PATELLAR FRACTURE - maintain immobilizer as per orthopedic surgery Follow-up with orthopedic surgery in 2 weeks PT recommending rehab PRN analgesics and ice packs DVT PROPHYLAXIS - SQ Heparin DISPOSITION transition to rehab Current Inpatient Medications: Current Inpatient Medications Medications (Trade) Dose Ordered Sig/Radames Route Start Time Stop Time Status Last Admin Dose Admin Acetaminophen (Tylenol Tab) 650 mg Q4H PRN PO 09/04/17 17:15 10/04/17 17:14 09/06/17 13:56 650 MG Acetaminophen/ Hydrocodone Bitart ([place] 5/325 Tab) 1 tab Q6H PRN PO 09/04/17 17:15 09/18/17 17:14 09/07/17 04:42 1 TAB Clonidine HCl (Catapres Tab) 0.1 mg Q6H PRN PO 09/05/17 18:15 10/05/17 18:14 09/07/17 04:41 0.1 MG Amlodipine Besylate (Norvasc Tab) 10 mg QAM PO 09/07/17 09:00 10/07/17 08:59 Aspirin (Ecotrin Tab) 81 mg DAILY PO 09/08/17 09:00 10/08/17 08:59 Clopidogrel Bisulfate (plAVix TAB) 75 mg QAM PO 09/08/17 09:00 10/08/17 08:59 Atorvastatin Calcium (Lipitor Tab) 40 mg QAM PO 09/07/17 09:00 10/07/17 08:59 Miscellaneous Information (Pharmacist Discharge Med Rec Consult) 1 ea UD PRN N/A 09/07/17 08:15 10/07/17 08:14
[2017-09-07 09:45] LABS: HEMOGLOBIN A1C 5.1 % (4.5-5.6)
--- NOTE | 2017-09-07 10:39 | DIAGNOSTIC IMAGING REPORT ---
MRA HEAD WITHOUT CONTRAST CLINICAL HISTORY: 67 years-old Female presenting with right DEWAXER stroke. TECHNIQUE: MR angiography of the head was performed without the use of intravenous contrast using 3-D [id number] technique. 3-D volumetric and/or maximum intensity projection (MIP) images were subsequently reconstructed for review. IV contrast: None. COMPARISON: MR brain performed the previous day. FINDINGS: Motion artifact degrades image quality limiting diagnostic sensitivity. Anterior circulation: Intracranial portions of the internal carotid arteries patent to the level of the termini. Anterior and middle cerebral arteries patent. Anterior communicating artery not well visualized. Posterior circulation: Left dominant vertebral artery. Vertebral arteries poorly visualized. The right vertebral artery does not clearly contribute to the basilar artery. Intradural portions of the vertebral arteries grossly patent. Posterior inferior cerebellar arteries grossly patent. Basilar artery grossly patent. Anterior inferior cerebellar arteries poorly visualized. Bilateral superior cerebellar arteries patent. Left posterior cerebral artery patent. Right posterior cerebral artery occluded from its origin distally. The right posterior communicating artery is patent at the carotid origin but poorly opacified in the mid to distal portion and does not opacify any portion of the right DEWAXER. Left posterior communicating artery patent. IMPRESSION: 1. 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 These findings were discussed with the ordering physician by Dr. Ramirez on 09/07/2017 10:37 AM. Electronically signed by: Tevin Ramirez M.D. 09/07/2017 10:38 AM Dictated Date/Time: 09/07/2017 10:28 AM
[2017-09-07] MEDS ORDERED: GADAVIST IV PRN (10:45)
--- NOTE | 2017-09-07 10:53 | DIAGNOSTIC IMAGING REPORT ---
MRA NECK COMBO CLINICAL HISTORY: 67 years-old Female presenting with right MRI SPECIALIST stroke, high blood pressure, memory loss, confusion, fall. TECHNIQUE: MR angiography of the neck was performed before and after the administration of intravenous contrast. 3-D volumetric and/or maximum intensity projection (MIP) images were subsequently reconstructed for review. IV contrast: 5.6 mL of Gadavist. Stenosis measurements were based on NASCET-like criteria. COMPARISON: None. FINDINGS: Motion artifact somewhat degrades image quality limiting diagnostic sensitivity the exam. Localizer images: Unremarkable. Aortic arch: Atherosclerosis of the three-vessel aortic arch. Innominate artery: Patent. Right common carotid artery: Minimal irregularity at the carotid bulb may represent atherosclerotic plaque. Right internal and external carotid arteries: Right carotid bifurcation patent. Right internal and external carotid arteries widely patent. Left common carotid artery: Minimal irregularity at the carotid bulb may represent atherosclerotic plaque. Left internal and external carotid arteries: Left carotid bifurcation patent. Left internal and external carotid arteries widely patent. Left subclavian artery: Patent. Vertebral arteries: Codominant vertebral arteries. Origin and course of the left vertebral artery patent though luminal irregularity may be a result of atherosclerosis. The right vertebral artery is also patent at its origin and along its course with similar luminal irregularity, suspected atherosclerosis. The right vertebral artery may not contribute to the basilar artery. Other: Limited intracranial evaluation demonstrates irregularity of the basilar artery, likely extensive atherosclerosis. Nonvisualization of the right posterior cerebral artery from its origin. Suspected stenosis of the right superior cerebellar artery. Anterior circulation grossly normal. Soft tissues of the neck normal allowing for the phase of contrast. IMPRESSION: 1. Atherosclerosis of the vertebral arteries and minimally at the carotid bulbs. 2. No evidence of significant stenosis, occlusion, or dissection of the cervical arteries. 3. Occlusion of the right posterior cerebral artery. Electronically signed by: Tevin Ramirez M.D. 09/07/2017 10:51 AM Dictated Date/Time: 09/07/2017 10:46 AM
--- NOTE | 2017-09-07 11:04 | NEUROLOGY CONSULTATION ---
DATE OF CONSULTATION: 09/07/2017 HISTORY OF PRESENT ILLNESS: A 67-year-old presumed right-handed female presented to the Emergency Room on September 04 after suffering a fall and developing left knee pain. She was here at the hospital visiting a grandchild. She was walking down the [place] when suddenly her legs gave out and she landed on her left knee. There was no loss of consciousness reported or associated lightheadedness or dizziness, chest pain or shortness of breath. The patient was known to be hypertensive, but had stopped her blood pressure medications over a year ago. She was seen in the Emergency Room and found to have an acute nondisplaced left patellar fracture and to be markedly hypertensive with systolics in the 220s. She was given IV labetalol without improvement and then hydralazine with a reported flow reduction in blood pressure. On this background, the patient yesterday approximately at 1:30 p.m., which at this point is approximately 18 hours ago. The nurses noted the patient to be confused. She was nonfocal at that time and blood pressure was managed expectantly. She was sent for an elective MRI of the brain, which I believe was performed approximately 10:00 p.m. last evening, which at this point is approximately 12 hours ago that showed an acute SUSTAINABILITY SPECIALIST infarct involving the right temporal occipital region without hemorrhagic transformation. A FLAIR hyperintensities suggest an infarct greater than 6 hours and an acute lacune in the high right periventricular white matter, extensive chronic vascular changes with old lacunar infarct. I believe that report was called up to the floor approximately midnight and it looks like an NIH stroke scale was ordered. The patient was uncooperative saying she just wanted to go to sleep. When reassessed at 4:00 a.m. this morning, she was impulsive climbing out of bed and disoriented, complaining of knee pain. Dr. Lara examined her this morning and found her to have deficits attributable to the new stroke. Her past medical history is notable for falls, query cognitive dysfunction as reported to Dr. Lara by the patient's daughter, hypertension, left shoulder fracture. SURGICAL HISTORY: Not known to me and the patient is not currently accurate. The patient smokes, rarely drinks alcohol, is not allergic to anything, was not taking medications at home. FAMILY HISTORY: Deemed unreliable. White count, H and H and platelet count are normal. PT INR on admission normal. Chemistry: Sodium 133, potassium 3.4, BUN and creatinine unremarkable, glucose 93, LDL 79. Troponin negative. EKG normal sinus rhythm. The patient has not had any atrial dysrhythmias. CURRENT MEDICATIONS: Aspirin, Plavix, subQ heparin, atorvastatin, clonidine, hydrocodone. PHYSICAL EXAMINATION: VITAL SIGNS: 36.8, 54, 19, 170/71 with the lowest recorded blood pressure being 159/86. GENERAL: The patient is awake, alert, oriented to person, not place, some sense that she is weak on the left. There is right/left confusion. No obvious aphasia. She follows some simple commands. She is in no acute distress. There are no carotid bruits. CARDIOVASCULAR: No heart murmurs. Heart is regular rate and rhythm. ABDOMEN: Soft and nontender. EXTREMITIES: Left knee immobilized. Feet are warm and dry. NEUROLOGIC: Pupils are equal, could not reliably visualize the optic nerves. There is a left homonymous hemianopsia. No significant facial asymmetry. No willis dysarthria. The left arm probably is 3-4/5. There is a significant component of neglect. There is a left drift and decreased left rapid alternating movements. Left leg was a little more difficult to assess. I believe it to be greater than antigravity and I believe it to be stronger than the left upper extremity. There appears to be a hemisensory loss to light touch, at least to temperature in the left arm and left leg. Reflexes are symmetric and the left toe is upgoing. IMPRESSION: This patient has an acute right posterior cerebral artery infarct. Radiographically, the onset is suggestive of at least in the range of 4 p.m. on September 06 and clinically probably the confusion noted at approximately 1:00 p.m. yesterday September 06, was likely at very least evidence of symptomatology. Therefore, she is approximately 21 hours at least into this event. I am suspicious that her fall with fracture of the left knee, which was more than 2 days ago, could have represented some subtle ischemia. PLAN: My current plan is to obtain an MRA of the head and neck to look for any high-grade stenosis of the vertebrobasilar. Reviewing the noncontrast MRI of the brain, I see no high-grade stenosis in the basilar artery branch vessels or MCA. If there were to be high-grade stenosis or occlusion, one could contact a tertiary care center. I doubt that the patient would be a candidate for intra-arterial thrombolysis because I am suspicious that the neurologic symptoms are greater than 24 hours, although we only record definite neurologic symptoms 21 hours ago. So, if there is high-grade SUSTAINABILITY SPECIALIST or basilar artery occlusion, I would consider transferring her to a tertiary care center, calling first to see if there is anything that they would have to offer the patient. I would avoid hypotension. Dual antiplatelet therapy seems appropriate. An echo with a bubble study as well as telemetric monitoring is reasonable. Smoking cessation gradual control of blood pressure is appropriate provided and again with that there is no high-grade vertebrobasilar stenosis, which might price changer. She will likely need a technical marketing consultant and long-term technical marketing consultant as an outpatient. We will follow with you. JAXON
--- NOTE | 2017-09-07 11:13 | PROGRESS NOTE ---
DATE: 09/07/2017 ADDENDUM I spoke to Dr. Ramirez, radiology today about the results of the patient's MRA of head and neck. The study has not been officially read, but he reviewed it with me. There is a proximal occlusion of the right VIDEO INTERN and a origin left VIDEO INTERN. The posterior circulation vert and basilar are somewhat degraded by motion, but grossly appeared to be intact and for there to be flow. Given that the timeframe of this is unclear, meaning we are at this point, which is 10:56 a.m., unclear if this is 24 or greater hours. I spoke to the stroke neurologist at [place], Dr. Navarro. She had felt this since radiographically the stroke appeared to be a fairly extensive VIDEO INTERN infarct and the VIDEO INTERN was occluded and the timeframe that no intra-arterial thrombolysis would be offered to this patient. Of course, we do not have perfusion studies to compare if there is a perfusion diffusion mismatch, but the degree of infarct in the VIDEO INTERN appears rather extensive. Additionally, I feel the patient was possibly symptomatic 48 hours ago, i.e., the reason for her fall and fracture of the left knee may have been some right hemisphere ischemia. We will continue to monitor the patient here with dual antiplatelet therapy and avoidance of hypotension. We will follow with you. JAXON
[2017-09-07] MEDS: HEPARIN SOD 5000 UNIT/0.5 ML CARP SQ SCH ×3 (12:03→21:08)
[2017-09-07] MEDS ORDERED: POTASSIUM CHLORIDE 10 MEQ TABCR PO ONE (12:30)
[2017-09-07] MEDS: CEFTRIAXONE SOD INJ 1 GM in DEXTROSE 5% ADD-VANTAGE 50ML 50 ML IV SCH (13:24)
[2017-09-08] VITALS (12 sets, daily range): BP systolic 169–221; BP diastolic 80–106; PULSE 69–80; TEMP 36.4–36.9; O2SAT 94–99
[2017-09-08] MEDS: HEPARIN SOD 5000 UNIT/0.5 ML CARP SQ SCH ×3 (05:45→21:11)
[2017-09-08 07:02] LABS: CALCIUM 9.2 mg/dl (8.5-10.1); CREATININE 0.81 mg/dl (0.60-1.20); POTASSIUM 4.7 mmol/L (3.5-5.1)
[2017-09-08] MEDS: ATORVASTATIN 40 MG TAB PO SCH (07:52)
[2017-09-08] MEDS: ASPIRIN 81 MG ECTAB PO SCH (07:52)
[2017-09-08] MEDS: CLOPIDOGREL BISULFATE 75 MG TAB PO SCH (07:52)
--- NOTE | 2017-09-08 08:46 | ECHOCARDIOGRAM REPORT ---
*NOTICE TO RECEIVING LIBERTARIAN AGENCY This information is strictly Confidential and protected under [place] law. [place] law prohibits you from making any further disclosure of this information unless further disclosure is expressly permitted by the written consent of the person to whom it pertains or is authorized by law. A general authorization for the release of medical or other information is not sufficient for this purpose. Hospital accepts no responsibility if the information is made available to any other person, INCLUDING THE PATIENT. Interpretation Summary * Name: FARIDA POTTS Study Date: 09/07/2017 11:16 AM BP: 170/71 mmHg * Patient Location: C.2E\S\E205\S\1 HR: 54 * : 1950 (M/d/yyyy) Gender: Female Height: 62 in * Age: 67 yrs Ethnicity: CA Weight: 123 lb * Ordering Physician: Alok Lara * Referring Physician: Self, Referred * Performed By: Anisha Villar RDCS * * Reason For Study: Acute CVA * BSA: 1.6 m2 * The study was technically limited. * Grossly normal valvular structure and function. * -- Conclusions -- * The study was technically limited. * Injection of contrast documented no interatrial shunt. * The interatrial septum is intact with no evidence for an atrial septal defect. * The left atrial size is normal. * Right atrial size is normal. * There is moderate concentric left ventricular hypertrophy. * Left ventricular systolic function is normal. * Grossly normal valvular structure and function. Procedure Details * A complete two-dimensional transthoracic echocardiogram was performed (2D, M-mode, Doppler and color flow Doppler). * A saline contrast injection was performed to assess for cardiac shunting. * The injection was performed through an intravenous line in the right arm. * The attending nurse who injected the saline contrast was Marzena Corey RN. * A total of 10 cc of agitated saline was given. Left Ventricle * The left ventricle is normal in size. * There is moderate concentric left ventricular hypertrophy. * Ejection Fraction = 55-60%. * Left ventricular systolic function is normal. * The left ventricular wall motion is normal. Right Ventricle * The right ventricle is grossly normal size. * The right ventricular systolic function is normal. Atria * The left atrial size is normal. * Right atrial size is normal. * Injection of contrast documented no interatrial shunt. * The interatrial septum is intact with no evidence for an atrial septal defect. Mitral Valve * The mitral valve is grossly normal. * Significant mitral regurgitation is absent. Tricuspid Valve * The tricuspid valve is not well visualized. * Significant tricuspid regurgitation is absent. Aortic Valve * The aortic valve is not well visualized. * No hemodynamically significant valvular aortic stenosis. * Trace aortic regurgitation. Great Vessels * The aortic root and proximal ascending aorta are normal sized. MMode 2D Measurements and Calculations IVSd 1.2 cm IVSs 1.6 cm LVIDd 4.1 cm LVIDs 3.0 cm LVPWd 1.3 cm LVPWs 1.9 cm IVS/LVPW 0.94 FS 27.8 % EDV(Teich) 73.8 ml ESV(Teich) 33.7 ml EF(Teich) 54.4 % EDV(cubed) 68.5 ml ESV(cubed) 25.7 ml EF(cubed) 62.4 % % IVS thick 31.8 % % LVPW thick 50.8 % LV mass(C)d 182.8 grams LV mass(C)dI 117.6 grams/m\S\2 LV mass(C)s 208.2 grams LV mass(C)sI 133.9 grams/m\S\2 SV(Teich) 40.2 ml SI(Teich) 25.8 ml/m\S\2 SV(cubed) 42.7 ml SI(cubed) 27.5 ml/m\S\2 Ao root diam 3.0 cm Ao root area 7.0 cm\S\2 ACS 2.0 cm LA dimension 2.6 cm LA/Ao 0.86 LVAd ap4 24.2 cm\S\2 LVLd ap4 7.3 cm EDV(MOD-sp4) 69.1 ml EDV(sp4-el) 67.9 ml LVAs ap4 14.0 cm\S\2 LVLs ap4 5.8 cm ESV(MOD-sp4) 29.3 ml ESV(sp4-el) 28.5 ml EF(MOD-sp4) 57.7 % EF(sp4-el) 57.9 % LVAd ap2 26.1 cm\S\2 LVLd ap2 7.3 cm EDV(MOD-sp2) 84.1 ml EDV(sp2-el) 79.5 ml LVAs ap2 16.2 cm\S\2 LVLs ap2 6.4 cm ESV(MOD-sp2) 37.3 ml ESV(sp2-el) 35.1 ml EF(MOD-sp2) 55.7 % EF(sp2-el) 55.9 % LVLd %diff -1.04 % EDV(MOD-bp) 76.6 ml LVLs %diff 8.9 % ESV(MOD-bp) 33.8 ml EF(MOD-bp) 55.8 % SV(MOD-sp4) 39.9 ml SI(MOD-sp4) 25.7 ml/m\S\2 SV(MOD-sp2) 46.8 ml SI(MOD-sp2) 30.1 ml/m\S\2 SV(MOD-bp) 42.7 ml SI(MOD-bp) 27.5 ml/m\S\2 SV(sp4-el) 39.3 ml SI(sp4-el) 25.3 ml/m\S\2 SV(sp2-el) 44.4 ml SI(sp2-el) 28.6 ml/m\S\2 Doppler Measurements and Calculations MV E max jamie 64.2 cm/sec MV A max jamie 68.5 cm/sec MV E/A 0.94 MV dec time 0.23 sec Ao V2 max 127.3 cm/sec Ao max PG 6.5 mmHg Ao max PG (full) 2.5 mmHg AI max jamie 334.9 cm/sec AI max PG 44.9 mmHg AI dec slope 117.6 cm/sec\S\2 AI P1/2t 834.4 msec LV V1 max PG 3.9 mmHg LV V1 max 99.2 cm/sec PA V2 max 80.2 cm/sec PA max PG 2.6 mmHg TR max jamie 232.1 cm/sec
[2017-09-08] MEDS: ACETAMINOPHEN 325 MG TAB PO PRN (11:35)
[2017-09-08] MEDS: CEFTRIAXONE SOD INJ 1 GM in DEXTROSE 5% ADD-VANTAGE 50ML 50 ML IV SCH (11:37)
--- NOTE | 2017-09-08 13:19 | PROGRESS NOTE ---
DATE: 09/08/2017 I am seeing Ms. Pop in followup of extensive right FISHING CAPTAIN infarct with right FISHING CAPTAIN being occluded. Her echo showed no cardiac source. She has not been in atrial fibrillation. She has no complaints, no headache, but does not recall why she feels numb on the left. She is oriented to place. There is some right/left confusion, some neglect and denial. There is a left homonymous hemianopsia. No obvious facial asymmetry. Speech is nondysarthric. There is mild weakness of the left arm and left leg. There is left hemianesthesia. Reflexes are symmetric. Left toe is upgoing. IMPRESSION: Right posterior cerebral artery infarct. The patient is stable to improved. There is significant amount of neglect. Continue antiplatelet therapy, monitoring for atrial dysrhythmia. The patient will need an outpatient long-term monitor. She will need ongoing risk factor modification, smoking cessation, goal LDL less than 70. We will follow with you. JAXON
--- NOTE | 2017-09-08 14:21 | Progress Note ---
Medicine Progress Note Date & Time of Visit: Sep 08, 2017 at 14:17. Subjective Seen resting in bed Appears anxious, reassured States she has the same numbness on the left side Somewhat disoriented to place and time but easily reoriented Denies headache dizziness chest pain shortness of breath No other new focal neurologic deficits Objective Last 8 Hrs Date Time Temp Pulse Resp B/P (MAP) Pulse Ox O2 Delivery O2 Flow Rate FiO2 09/08/17 12:00 Room Air 09/08/17 11:38 36.6 70 18 180/80 (113) 99 Room Air 09/08/17 10:30 180/80 (113) 09/08/17 08:00 Room Air 09/08/17 07:50 36.7 75 18 169/103 (125) 95 Room Air Physical Exam: General-oriented 2 not in distress speaking in sentences no accessory muscle use Eyes- anicteric Neck- no JVD Lungs- clear breath sounds bilaterally Heart- regular rhythm; no murmur, normal rate Abdomen- normal bowel sounds, soft, nontender, nondistended Extremities- no pretibial edema, no calf tenderness; peripheral pulses intact Extremity: Mild erythema of the left knee, no edema/tenderness/warmth Neuro- alert, oriented x 2; Cranial nerves II through XII grossly intact tongue somewhat deviated to the left Monitors: Left side 3-4 out of 5, right side 5 out of 5 Sensory: Somewhat decreased in the left, 100% on the right Skin- warm & dry Laboratory Results: Last 24 Hours Test 09/08/17 06:06 Sodium Level 133 mmol/L Potassium Level 4.7 mmol/L Chloride Level 103 mmol/L Carbon Dioxide Level 24 mmol/L Anion Gap 6.0 mmol/L Blood Urea Nitrogen 13 mg/dl Creatinine 0.81 mg/dl Est Creatinine Clear Calc Drug Dose 54.8 ml/min Estimated GFR () 88.3 Estimated GFR (Non- 76.2 BUN/Creatinine Ratio 16.7 Random Glucose 84 mg/dl Calcium Level 9.2 mg/dl Date/Time Source Procedure Growth Status 09/07/17 15:20 Urine , Clean Catch Urine Culture - Preliminary PIN-POINT GROWTH PRESENT, REINCUBATING. Resulted Assessment & Plan ACUTE CVA R CLINICAL ORTHOPTIST TERRITORY (TEMPORAL/OCCIPITAL/PERIVENTRICULAR) R CLINICAL ORTHOPTIST OCCLUSION --Did not not meet criteria for TPA unclear when deficits started, deficits are minimal -- MRA head and neck: Positive complete occlusion of the right CLINICAL ORTHOPTIST echo: * -- Conclusions -- * The study was technically limited. * Injection of contrast documented no interatrial shunt. * The interatrial septum is intact with no evidence for an atrial septal defect. * The left atrial size is normal. * Right atrial size is normal. * There is moderate concentric left ventricular hypertrophy. * Left ventricular systolic function is normal. * Grossly normal valvular structure and function. --Deficits about the same --Continue aspirin, Plavix, Lipitor -- BP goal: not to exceed systolic 200 PRN Clonidine for syst bp > 200 -- PT /OT We will need outpatient cardiac monitoring Patient will need LDL below 70 Smoking cessation Blood pressure control -- discussed with Dr. Baxter Brain MRI 1. Acute right CLINICAL ORTHOPTIST territory infarct involving the right temporal occipital region. No hemorrhagic conversion. FLAIR hyperintensity in this region suggests an infarct greater than 6 hours old. 2. Acute lacunar infarct in the right periventricular white matter. 3. Extensive chronic small vessel ischemic change with old lacunar infarcts. HYPERTENSIVE URGENCY -Patient presenting after suffering a mechanical fall and found to have an acute left patellar fracture and also significantly elevated blood pressures in the ED -BP as high as 246/102 in the ED -- Heart rate noted to be in the 50s, metoprolol discontinued renal ultrasound: no renal artery stenosis -- hold scheduled BP medication to allow for permissive hypertension in light of acute CVA PRN Clonidine for systolic bp > 200 Possible UTI Urine cultures pending Empiric ceftriaxone day #2 NONDISPLACED LEFT PATELLAR FRACTURE - maintain immobilizer as per orthopedic surgery Follow-up with orthopedic surgery in 2 weeks PT recommending rehab PRN analgesics and ice packs DVT PROPHYLAXIS - SQ Heparin DISPOSITION transition to rehab when cleared by neurology Current Inpatient Medications: Current Inpatient Medications Medications (Trade) Dose Ordered Sig/Radames Route Start Time Stop Time Status Last Admin Dose Admin Acetaminophen (Tylenol Tab) 650 mg Q4H PRN PO 09/04/17 17:15 10/04/17 17:14 09/08/17 11:35 650 MG Acetaminophen/ Hydrocodone Bitart ([place] 5/325 Tab) 1 tab Q6H PRN PO 09/04/17 17:15 09/18/17 17:14 09/07/17 04:42 1 TAB Clonidine HCl (Catapres Tab) 0.1 mg Q6H PRN PO 09/05/17 18:15 10/05/17 18:14 09/07/17 18:09 0.1 MG Aspirin (Ecotrin Tab) 81 mg DAILY PO 09/08/17 09:00 10/08/17 08:59 09/08/17 07:52 81 MG Clopidogrel Bisulfate (plAVix TAB) 75 mg QAM PO 09/08/17 09:00 10/08/17 08:59 09/08/17 07:52 75 MG Atorvastatin Calcium (Lipitor Tab) 40 mg QAM PO 09/07/17 09:00 10/07/17 08:59 09/08/17 07:52 40 MG Miscellaneous Information (Pharmacist Discharge Med Rec Consult) 1 ea UD PRN N/A 09/07/17 08:15 10/07/17 08:14 Heparin Sodium (Porcine) (Heparin Sq 5000 Unit/0.5ml) 5,000 unit Q8 SQ 09/07/17 09:30 10/07/17 09:29 09/08/17 13:20 5,000 UNIT Gadobutrol (Gadavist) 5.6 mmol UD PRN IV 09/07/17 10:45 09/11/17 10:44 Ceftriaxone Sodium 1 gm/ Dextrose 50 ml @ 100 mls/hr Q24H IV 09/07/17 12:30 09/12/17 12:29 09/08/17 11:37 100 MLS/HR
[2017-09-08] MEDS: CLONIDINE HCL 0.1 MG TAB PO PRN ×2 (15:39→23:50)
[2017-09-09] VITALS (10 sets, daily range): BP systolic 165–214; BP diastolic 65–114; PULSE 62–72; TEMP 36.1–36.7; O2SAT 97–100
[2017-09-09] MEDS: HEPARIN SOD 5000 UNIT/0.5 ML CARP SQ SCH ×3 (06:02→21:05)
[2017-09-09 06:40] LABS: CALCIUM 8.7 mg/dl (8.5-10.1); CREATININE 0.76 mg/dl (0.60-1.20); POTASSIUM 3.8 mmol/L (3.5-5.1)
[2017-09-09] MEDS: ATORVASTATIN 40 MG TAB PO SCH (08:10)
[2017-09-09] MEDS: ASPIRIN 81 MG ECTAB PO SCH (08:10)
[2017-09-09] MEDS: CLOPIDOGREL BISULFATE 75 MG TAB PO SCH (08:10)
[2017-09-09] MEDS ORDERED: NURSING VERBAL MED ORDER ONE (11:15)
[2017-09-09] MEDS ORDERED: AMLODIPINE BESYLATE 5 MG TAB PO ONE (11:30)
[2017-09-09] MEDS: CEFTRIAXONE SOD INJ 1 GM in DEXTROSE 5% ADD-VANTAGE 50ML 50 ML IV SCH (11:50)
--- NOTE | 2017-09-09 11:51 | Progress Note ---
Medicine Progress Note Date & Time of Visit: Sep 09, 2017 at 11:50. Subjective delayed entry date of service as noted above seen with at bedside states she feels improved compared to yesterday left side seems to be improving no headache, chest pain, ,dyspnea, dizziness no other symptoms Objective Last 8 Hrs Date Time Temp Pulse Resp B/P (MAP) Pulse Ox O2 Delivery O2 Flow Rate FiO2 09/09/17 11:47 214/107 (142) 09/09/17 11:22 36.5 65 20 192/100 (130) 100 Room Air 09/09/17 08:00 Room Air 09/09/17 07:47 36.7 72 20 179/96 (123) 99 Room Air 09/09/17 04:15 36.5 62 16 183/86 (118) 100 09/09/17 04:00 97 Room Air Physical Exam: General-oriented 2 not in distress speaking in sentences no accessory muscle use Eyes- anicteric Neck- no JVD Lungs- clear breath sounds bilaterally, no rales Heart- regular rhythm; no murmur, normal rate Abdomen- normal bowel sounds, soft, nontender, nondistended Extremities- no pretibial edema, no calf tenderness; peripheral pulses intact Extremity: Mild erythema of the left knee, no edema/tenderness/warmth Neuro- alert, oriented x 2; left sided hemianopsia Monitors: Left side 3-4 out of 5- improving, right side 5 out of 5 Sensory: Somewhat decreased in the left, 100% on the right Skin- warm & dry Laboratory Results: Last 24 Hours Test 09/09/17 05:36 Sodium Level 134 mmol/L Potassium Level 3.8 mmol/L Chloride Level 102 mmol/L Carbon Dioxide Level 22 mmol/L Anion Gap 10.0 mmol/L Blood Urea Nitrogen 12 mg/dl Creatinine 0.76 mg/dl Est Creatinine Clear Calc Drug Dose 58.4 ml/min Estimated GFR () 95.4 Estimated GFR (Non- 82.3 BUN/Creatinine Ratio 16.2 Random Glucose 75 mg/dl Calcium Level 8.7 mg/dl Assessment & Plan ACUTE CVA R MAINTENANCE ANALYST TERRITORY (TEMPORAL/OCCIPITAL/PERIVENTRICULAR) R MAINTENANCE ANALYST OCCLUSION --Did not not meet criteria for TPA unclear when deficits started, deficits are minimal -- MRA head and neck: Positive complete occlusion of the right MAINTENANCE ANALYST echo: * -- Conclusions -- * The study was technically limited. * Injection of contrast documented no interatrial shunt. * The interatrial septum is intact with no evidence for an atrial septal defect. * The left atrial size is normal. * Right atrial size is normal. * There is moderate concentric left ventricular hypertrophy. * Left ventricular systolic function is normal. * Grossly normal valvular structure and function. --Deficits seems to be improving --Continue aspirin, Plavix, Lipitor -- BP goal: not to exceed systolic 200 Amlodipine 5mg po given today PRN Clonidine for syst bp > 200 monitor BP discuss BP goal with Neuro -- PT /OT outpatient cardiac monitoring Patient will need LDL below 70 Smoking cessation Blood pressure control -- discussed with Dr. Baxter Brain MRI 1. Acute right MAINTENANCE ANALYST territory infarct involving the right temporal occipital region. No hemorrhagic conversion. FLAIR hyperintensity in this region suggests an infarct greater than 6 hours old. 2. Acute lacunar infarct in the right periventricular white matter. 3. Extensive chronic small vessel ischemic change with old lacunar infarcts. HYPERTENSIVE URGENCY -Patient presenting after suffering a mechanical fall and found to have an acute left patellar fracture and also significantly elevated blood pressures in the ED -BP as high as 246/102 in the ED -- Heart rate noted to be in the 50s, metoprolol discontinued renal ultrasound: no renal artery stenosis -- hold scheduled BP medication to allow for permissive hypertension in light of acute CVA -- BP goal: not to exceed systolic 200 Amlodipine 5mg po given today PRN Clonidine for syst bp > 200 monitor BP discuss BP goal with Neuro Possible UTI Urine cultures pending Empiric ceftriaxone day #3 NONDISPLACED LEFT PATELLAR FRACTURE - maintain immobilizer as per orthopedic surgery Follow-up with orthopedic surgery in 2 weeks PT recommending rehab PRN analgesics and ice packs DVT PROPHYLAXIS - SQ Heparin DISPOSITION transition to rehab when cleared by neurology Current Inpatient Medications: Current Inpatient Medications Medications (Trade) Dose Ordered Sig/Radames Route Start Time Stop Time Status Last Admin Dose Admin Acetaminophen (Tylenol Tab) 650 mg Q4H PRN PO 09/04/17 17:15 10/04/17 17:14 09/08/17 11:35 650 MG Acetaminophen/ Hydrocodone Bitart ([place] 5/325 Tab) 1 tab Q6H PRN PO 09/04/17 17:15 09/18/17 17:14 09/07/17 04:42 1 TAB Clonidine HCl (Catapres Tab) 0.1 mg Q6H PRN PO 09/05/17 18:15 10/05/17 18:14 09/08/17 23:50 0.1 MG Aspirin (Ecotrin Tab) 81 mg DAILY PO 09/08/17 09:00 10/08/17 08:59 09/09/17 08:10 81 MG Clopidogrel Bisulfate (plAVix TAB) 75 mg QAM PO 09/08/17 09:00 10/08/17 08:59 09/09/17 08:10 75 MG Atorvastatin Calcium (Lipitor Tab) 40 mg QAM PO 09/07/17 09:00 10/07/17 08:59 09/09/17 08:10 40 MG Miscellaneous Information (Pharmacist Discharge Med Rec Consult) 1 ea UD PRN N/A 09/07/17 08:15 10/07/17 08:14 Heparin Sodium (Porcine) (Heparin Sq 5000 Unit/0.5ml) 5,000 unit Q8 SQ 09/07/17 09:30 10/07/17 09:29 09/09/17 06:02 5,000 UNIT Gadobutrol (Gadavist) 5.6 mmol UD PRN IV 09/07/17 10:45 09/11/17 10:44 Ceftriaxone Sodium 1 gm/ Dextrose 50 ml @ 100 mls/hr Q24H IV 09/07/17 12:30 09/12/17 12:29 09/08/17 11:37 100 MLS/HR
--- NOTE | 2017-09-09 15:54 | Neurology Progress Notes ---
Neurology Progress Note Date of Service Sep 09, 2017. Maxwell Dodge is a 67 year old female who presents to the ED after suffering a fall and developing left knee pain. she was at the hospital seeing her new grand baby and suffered a fall. She self stopped her blood pressure medications over a year ago. She was found to have an acute nondisplaced left patellar fracture. She is also found to have significantly elevated blood pressures with systolics in the 220s. She was found to have an acute R PACKAGING OPERATOR territory infarct with complete occlusion of R PACKAGING OPERATOR. Her blood pressure was liberalized. She has been accepted at [facility] in [place] but her blood pressure has been resistant to treatment. denies CP, SOB, abdominal pain, vision changes. Objective Date Time Temp Pulse Resp B/P (MAP) Pulse Ox O2 Delivery O2 Flow Rate FiO2 09/09/17 14:00 165/114 (131) 09/09/17 12:00 Room Air 09/09/17 11:47 214/107 (142) 09/09/17 11:22 36.5 65 20 192/100 (130) 100 Room Air 09/09/17 08:00 Room Air 09/09/17 07:47 36.7 72 20 179/96 (123) 99 Room Air 09/09/17 04:15 36.5 62 16 183/86 (118) 100 09/09/17 04:00 97 Room Air 09/09/17 00:03 36.1 72 18 204/101 (135) 100 09/08/17 23:59 97 Room Air 09/08/17 20:00 97 Room Air 09/08/17 19:53 193/87 (122) 09/08/17 19:00 36.5 69 22 208/82 (124) 97 Room Air 09/08/17 17:00 196/86 (122) 09/08/17 16:15 201/101 (134) 09/08/17 16:00 Room Air Last 24 Hours Test 09/09/17 05:36 Sodium Level 134 mmol/L Potassium Level 3.8 mmol/L Chloride Level 102 mmol/L Carbon Dioxide Level 22 mmol/L Anion Gap 10.0 mmol/L Blood Urea Nitrogen 12 mg/dl Creatinine 0.76 mg/dl Est Creatinine Clear Calc Drug Dose 58.4 ml/min Estimated GFR () 95.4 Estimated GFR (Non- 82.3 BUN/Creatinine Ratio 16.2 Random Glucose 75 mg/dl Calcium Level 8.7 mg/dl Imaging: Physical Exam: Constitutional: appearance nourished, healthy and normal Ears, Nose, Mouth and Throat: mucous membranes moist, no injection and skin normal, eyes normal Cardiovascular: normal S-1 and S-2 and regular rate and rhythm Respiratory: course breath sounds Musculoskeletal: no peripheral edema and good distal pulses Skin: no stigmata of neurocutaneous disease noted and normal and intact Eyes: pupils equal, round and reactive to light (PERRL) Left homonymous hemianopsia NEUROLOGIC EXAMINATION: Mental status: Alert and interactive Oriented to person Speech fluent with no evidence of aphasia or dysarthria, some left jenny neglect Cranial Nerves smile eye brow raise symmetric Reflexes: Deep tendon reflexes were symmetrical and graded 2/5 left upgoing GT Sensory: left sided sensory loss to cool touch Gait/Stance: Posture lying in bed Motor: Negative for pronator drift of out stretched arms with eyes closed. Strength: biceps triceps hand halal meat packer left 4/5 deltoids 3/5, hip flex plantar patellar flex ext 4+/5, right biceps triceps hand halal meat packer 5/5, hip flex 5/5 Current Inpatient Medications Medications (Trade) Dose Ordered Sig/Radames Route Start Time Stop Time Status Last Admin Dose Admin Acetaminophen (Tylenol Tab) 650 mg Q4H PRN PO 09/04/17 17:15 10/04/17 17:14 09/08/17 11:35 650 MG Acetaminophen/ Hydrocodone Bitart ([place] 5/325 Tab) 1 tab Q6H PRN PO 09/04/17 17:15 09/18/17 17:14 09/07/17 04:42 1 TAB Clonidine HCl (Catapres Tab) 0.1 mg Q6H PRN PO 09/05/17 18:15 10/05/17 18:14 09/08/17 23:50 0.1 MG Aspirin (Ecotrin Tab) 81 mg DAILY PO 09/08/17 09:00 10/08/17 08:59 09/09/17 08:10 81 MG Clopidogrel Bisulfate (plAVix TAB) 75 mg QAM PO 09/08/17 09:00 10/08/17 08:59 09/09/17 08:10 75 MG Atorvastatin Calcium (Lipitor Tab) 40 mg QAM PO 09/07/17 09:00 5/7/18 08:59 09/09/17 08:10 40 MG Miscellaneous Information (Pharmacist Discharge Med Rec Consult) 1 ea UD PRN N/A 09/07/17 08:15 10/07/17 08:14 Heparin Sodium (Porcine) (Heparin Sq 5000 Unit/0.5ml) 5,000 unit Q8 SQ 09/07/17 09:30 10/07/17 09:29 09/09/17 15:33 5,000 UNIT Gadobutrol (Gadavist) 5.6 mmol UD PRN IV 09/07/17 10:45 09/11/17 10:44 Ceftriaxone Sodium 1 gm/ Dextrose 50 ml @ 100 mls/hr Q24H IV 09/07/17 12:30 09/12/17 12:29 09/09/17 11:50 100 MLS/HR Impression 67 year old female HTN, fall after acute PACKAGING OPERATOR territory stroke right Plan 1. MRI brain- acute right PACKAGING OPERATOR territory stroke and lacunar stroke 2. needs blood pressure control but decrease slowly 3. DM, HTN, DL with LDL <70 4. aspirin 81 mg and plavix 75 mg daily x 3 months then aspirin 81 mg for life time 5. smoking cessation 6. PT/OT- need rehab stay accepted at [facility] 7. will need out patient ZIO or cardio net follow up with neurology after discharge from rehab 2-[address] Mackenzie Mcneil or Mackenzie Goff PAC schedule will sign off for now will be available for questions concerns. I have seen and discussed above patient with Dr Chalino Teresa, neurology Patient seen and examined has a dense left hemianopsia and is post recent cva workup complete and follow up will be as outlined above Chalino Teresa MD
[2017-09-10] VITALS (14 sets, daily range): BP systolic 145–196; BP diastolic 74–96; PULSE 65–80; TEMP 36.3–37; O2SAT 95–99
[2017-09-10] MEDS: CLONIDINE HCL 0.1 MG TAB PO PRN (01:19)
[2017-09-10] MEDS: HEPARIN SOD 5000 UNIT/0.5 ML CARP SQ SCH ×3 (05:36→21:29)
[2017-09-10 06:04] LABS: HEMATOCRIT 40.6 % (37-47); HEMOGLOBIN 13.9 g/dL (12.0-16.0); MEAN CELL VOLUME 84.8 fL (80-100); MEAN CORPUSCULAR HGB CONC 34.2 g/dl (32-36); MEAN PLATELET VOLUME 9.6 fL (7.4-10.4); PLATELET COUNT 279 K/uL (130-400); RED CELL DISTRIBUTION WIDTH CV 13.2 % (11.5-14.5); RED CELL DISTRIBUTION WIDTH SD 40.5 fL (36.4-46.3); WHITE BLOOD COUNT 5.32 K/uL (4.8-10.8)
[2017-09-10 06:29] LABS: CALCIUM 8.6 mg/dl (8.5-10.1); CREATININE 0.7 mg/dl (0.60-1.20); POTASSIUM 3.9 mmol/L (3.5-5.1)
--- NOTE | 2017-09-10 08:34 | Progress Note ---
Subjective Date of Service: Sep 10, 2017. Subjective Pt evaluation today including: conversation w/ patient, physical exam, lab review, review of studies, review of inpatient medication list Saw/examined the patient in room 205 She's doing well, no problems/issues to note today Denies any pain Problem List Medical Problems: (1) Fall Status: Acute (2) HTN (hypertension) Status: Chronic (3) Hypertension Status: Acute (4) Patellar fracture Status: Acute Review of Systems Constitutional: No fever, No chills Respiratory: No cough, No sputum, No shortness of breath Cardiac: No chest pain, No edema, No palpitations Abdomen: No pain, No nausea, No vomiting, No diarrhea Medications Current Inpatient Medications Medications (Trade) Dose Ordered Sig/Radames Route Start Time Stop Time Status Last Admin Dose Admin Acetaminophen (Tylenol Tab) 650 mg Q4H PRN PO 09/04/17 17:15 10/04/17 17:14 09/08/17 11:35 650 MG Acetaminophen/ Hydrocodone Bitart ([place] 5/325 Tab) 1 tab Q6H PRN PO 09/04/17 17:15 09/18/17 17:14 09/07/17 04:42 1 TAB Aspirin (Ecotrin Tab) 81 mg DAILY PO 09/08/17 09:00 10/08/17 08:59 09/09/17 08:10 81 MG Clopidogrel Bisulfate (plAVix TAB) 75 mg QAM PO 09/08/17 09:00 10/08/17 08:59 09/09/17 08:10 75 MG Atorvastatin Calcium (Lipitor Tab) 40 mg QAM PO 09/07/17 09:00 10/07/17 08:59 09/09/17 08:10 40 MG Miscellaneous Information (Pharmacist Discharge Med Rec Consult) 1 ea UD PRN N/A 09/07/17 08:15 10/07/17 08:14 Heparin Sodium (Porcine) (Heparin Sq 5000 Unit/0.5ml) 5,000 unit Q8 SQ 09/07/17 09:30 10/07/17 09:29 09/10/17 05:36 5,000 UNIT Gadobutrol (Gadavist) 5.6 mmol UD PRN IV 09/07/17 10:45 09/11/17 10:44 Ceftriaxone Sodium 1 gm/ Dextrose 50 ml @ 100 mls/hr Q24H IV 09/07/17 12:30 09/12/17 12:29 09/09/17 11:50 100 MLS/HR Lisinopril (Zestril Tab) 10 mg QAM PO 09/10/17 09:00 10/10/17 08:59 Objective Vital Signs Date Time Temp Pulse Resp B/P (MAP) Pulse Ox O2 Delivery O2 Flow Rate FiO2 09/10/17 04:00 95 Room Air 09/10/17 03:49 36.7 66 16 149/74 (99) 95 Room Air 09/10/17 00:07 37.0 65 18 196/91 (126) 98 Room Air 09/10/17 00:01 98 Room Air 09/09/17 20:00 99 Room Air 09/09/17 16:00 Room Air 09/09/17 15:13 36.6 63 18 187/65 (105) 99 Room Air 09/09/17 14:00 165/114 (131) 09/09/17 12:00 Room Air 09/09/17 11:47 214/107 (142) 09/09/17 11:22 36.5 65 20 192/100 (130) 100 Room Air 09/09/17 08:00 Room Air Physical Exam General Appearance: no apparent distress Respiratory/Chest: chest non-tender, lungs clear, normal breath sounds, no respiratory distress, no accessory muscle use Cardiovascular: regular rate, rhythm, no edema, no murmur Extremities: normal inspection, no pedal edema Neurologic/Psychiatric: alert, normal mood/affect, + pertinent finding (mild L sided neglect, gaze off to the R) Skin: normal color Lymphatic: no adenopathy Laboratory Results Last 24 Hours Test 09/10/17 05:47 White Blood Count 5.32 K/uL Red Blood Count 4.79 M/uL Hemoglobin 13.9 g/dL Hematocrit 40.6 % Mean Corpuscular Volume 84.8 fL Mean Corpuscular Hemoglobin 29.0 pg Mean Corpuscular Hemoglobin Concent 34.2 g/dl RDW Standard Deviation 40.5 fL RDW Coefficient of Variation 13.2 % Platelet Count 279 K/uL Mean Platelet Volume 9.6 fL Sodium Level 134 mmol/L Potassium Level 3.9 mmol/L Chloride Level 102 mmol/L Carbon Dioxide Level 20 mmol/L Anion Gap 12.0 mmol/L Blood Urea Nitrogen 15 mg/dl Creatinine 0.70 mg/dl Est Creatinine Clear Calc Drug Dose 63.4 ml/min Estimated GFR () 105.4 Estimated GFR (Non- 90.9 BUN/Creatinine Ratio 21.3 Random Glucose 71 mg/dl Calcium Level 8.6 mg/dl Assessment and Plan This is a 67 year old female with a past medical history of hypertension; patient stopped taking medications for this - presented with syncope and subsequently found to have an acute MOLD CONSTRUCTION SUPERVISOR territory stroke and lacunar infarct; found to be in hypertensive urgency as well as an acute nondisplaced patellar fracture. Acute R MOLD CONSTRUCTION SUPERVISOR territory CVA Acute and Chronic Bilateral Lacunar Infarcts - Brain MRI on 09/06 suggests acute MOLD CONSTRUCTION SUPERVISOR territory infarct as well as acute and chronic lacunar infarcts - high blood pressure is likely the culprit as patient stopped taking her medications; other risk factors including tobacco use history - appreciate neurology input - will be on aspirin + Plavix x 3 months; then just aspirin 81mg for life - continue Lipitor - d/c PRN clonidine - adding Lisinopril 10mg - monitor blood pressure - continue PT/OT/speech - will discharge to rehab when stable Hypertensive Urgency - patient presented with hypertensive urgency with BP > 200/100 - stopped taking her home medications of Lisinopril and metoprolol - renal ultrasound performed - no renal artery stenosis noted - due to bradycardia, metoprolol stopped - will stop PRN clonidine - add Lisinopril 10mg and monitor BP Tobacco Use Disorder - smokes 2-3 cigarettes per day - okay with tobacco cessation Nondisplaced L Patellar Fracture - appreciate ortho input - maintain immobilizer as per orthopedic surgery; weight-bearing as tolerated - Follow-up with orthopedic surgery in 2 weeks - discharge to inpatient rehab Possible UTI - urine culture - many organisms growing, likely mixed skin carlos manuel - currently on Rocephin x3 days - asymptomatic bacteruria - can likely d/c antibiotics on discharge DVT ppx - subq heparin FULL CODE
[2017-09-10] MEDS ORDERED: LISINOPRIL 10 MG TAB PO SCH (09:00)
[2017-09-10] MEDS: ATORVASTATIN 40 MG TAB PO SCH (09:56)
[2017-09-10] MEDS: CLOPIDOGREL BISULFATE 75 MG TAB PO SCH (09:56)
[2017-09-10] MEDS: ASPIRIN 81 MG ECTAB PO SCH (09:56)
--- NOTE | 2017-09-10 11:44 | Clinical Documentation Query ---
KELSIE Valencia : Please Document Present on Admission Status for: Acute R BENEFITS REPRESENTATIVE territory CVA, Acute and Chronic Bilateral Lacunar Infarcts This documentation appeared on hospital day #3. Presented with hypertensive urgency and fall. Please document the suspected status of the CVA on admission. Thank you. ( X ) Acute R BENEFITS REPRESENTATIVE territory CVA, POA ( ) Acute R BENEFITS REPRESENTATIVE territory CVA, not POA Thank You, Kurt Llamas, RN [phone]
[2017-09-10] MEDS: CEFTRIAXONE SOD INJ 1 GM in DEXTROSE 5% ADD-VANTAGE 50ML 50 ML IV SCH (13:21)
[2017-09-11] VITALS (10 sets, daily range): BP systolic 121–183; BP diastolic 75–94; PULSE 69–81; TEMP 36.4–37; O2SAT 95–97
[2017-09-11] MEDS: HEPARIN SOD 5000 UNIT/0.5 ML CARP SQ SCH ×2 (06:10→13:18)
[2017-09-11 07:26] LABS: CALCIUM 8.7 mg/dl (8.5-10.1); CREATININE 0.74 mg/dl (0.60-1.20); POTASSIUM 3.6 mmol/L (3.5-5.1)
[2017-09-11] MEDS: ATORVASTATIN 40 MG TAB PO SCH (07:37)
[2017-09-11] MEDS: ASPIRIN 81 MG ECTAB PO SCH (07:37)
[2017-09-11] MEDS: CLOPIDOGREL BISULFATE 75 MG TAB PO SCH (07:37)
--- NOTE | 2017-09-11 08:25 | Progress Note ---
Subjective Date of Service: Sep 11, 2017. Subjective Pt evaluation today including: conversation w/ patient, physical exam, lab review, review of studies, review of inpatient medication list Saw/examined the patient in room 205 She's doing okay, still has some L sided neglect Improving L upper and lower extremity strength Problem List Medical Problems: (1) Fall Status: Acute (2) HTN (hypertension) Status: Chronic (3) Hypertension Status: Acute (4) Patellar fracture Status: Acute Review of Systems Constitutional: + weakness, No fever, No chills Respiratory: No cough, No sputum, No shortness of breath Cardiac: No chest pain Neurologic: + weakness, + balance problems Medications Current Inpatient Medications Medications (Trade) Dose Ordered Sig/Radames Route Start Time Stop Time Status Last Admin Dose Admin Acetaminophen (Tylenol Tab) 650 mg Q4H PRN PO 09/04/17 17:15 10/04/17 17:14 09/08/17 11:35 650 MG Acetaminophen/ Hydrocodone Bitart ([place] 5/325 Tab) 1 tab Q6H PRN PO 09/04/17 17:15 09/18/17 17:14 09/07/17 04:42 1 TAB Aspirin (Ecotrin Tab) 81 mg DAILY PO 09/08/17 09:00 10/08/17 08:59 09/11/17 07:37 81 MG Clopidogrel Bisulfate (plAVix TAB) 75 mg QAM PO 09/08/17 09:00 10/08/17 08:59 09/11/17 07:37 75 MG Atorvastatin Calcium (Lipitor Tab) 40 mg QAM PO 09/07/17 09:00 10/07/17 08:59 09/11/17 07:37 40 MG Miscellaneous Information (Pharmacist Discharge Med Rec Consult) 1 ea UD PRN N/A 09/07/17 08:15 10/07/17 08:14 Heparin Sodium (Porcine) (Heparin Sq 5000 Unit/0.5ml) 5,000 unit Q8 SQ 09/07/17 09:30 10/07/17 09:29 09/11/17 06:10 5,000 UNIT Gadobutrol (Gadavist) 5.6 mmol UD PRN IV 09/07/17 10:45 09/11/17 10:44 Ceftriaxone Sodium 1 gm/ Dextrose 50 ml @ 100 mls/hr Q24H IV 09/07/17 12:30 09/12/17 12:29 09/10/17 13:21 100 MLS/HR Lisinopril (Zestril Tab) 20 mg QAM PO 09/11/17 09:00 10/10/17 08:59 Carvedilol (Coreg Tab) 3.125 mg BID PO 09/11/17 09:00 10/11/17 08:59 Objective Vital Signs Date Time Temp Pulse Resp B/P (MAP) Pulse Ox O2 Delivery O2 Flow Rate FiO2 09/11/17 04:00 97 Room Air 09/11/17 03:15 37.0 69 18 183/94 (123) 97 09/11/17 00:01 97 Room Air 09/10/17 23:43 36.6 71 16 170/84 (112) 97 Room Air 09/10/17 20:00 98 Room Air 09/10/17 19:00 36.5 70 18 173/78 (109) 98 Room Air 09/10/17 16:00 95 Room Air 09/10/17 15:29 36.3 70 24 170/75 (106) 96 Room Air 09/10/17 12:30 95 Room Air 09/10/17 11:38 36.8 71 20 145/81 (102) 99 Room Air 09/10/17 08:44 95 Room Air Physical Exam General Appearance: no apparent distress Respiratory/Chest: lungs clear, normal breath sounds, no respiratory distress, no accessory muscle use Cardiovascular: regular rate, rhythm, no edema, no murmur Extremities: normal inspection, no pedal edema Neurologic/Psychiatric: alert, + motor weakness (L sided) Laboratory Results Last 24 Hours Test 09/11/17 06:25 Sodium Level 135 mmol/L Potassium Level 3.6 mmol/L Chloride Level 105 mmol/L Carbon Dioxide Level 21 mmol/L Anion Gap 9.0 mmol/L Blood Urea Nitrogen 18 mg/dl Creatinine 0.74 mg/dl Est Creatinine Clear Calc Drug Dose 60.0 ml/min Estimated GFR () 98.5 Estimated GFR (Non- 85.0 BUN/Creatinine Ratio 24.8 Random Glucose 90 mg/dl Calcium Level 8.7 mg/dl Assessment and Plan This is a 67 year old female with a past medical history of hypertension; patient stopped taking medications for this - presented with syncope and subsequently found to have an acute NURSE MANAGER territory stroke and lacunar infarct; found to be in hypertensive urgency as well as an acute nondisplaced patellar fracture. Acute R NURSE MANAGER territory CVA Acute and Chronic Bilateral Lacunar Infarcts 09/11 - patient is doing well - will continue aspirin + Plavix x3 months, then aspirin for life - continue Lipitor - PT/OT/speech 09/10 - Brain MRI on 09/06 suggests acute NURSE MANAGER territory infarct as well as acute and chronic lacunar infarcts - high blood pressure is likely the culprit as patient stopped taking her medications; other risk factors including tobacco use history - appreciate neurology input - will be on aspirin + Plavix x 3 months; then just aspirin 81mg for life - continue Lipitor - d/c PRN clonidine - adding Lisinopril 10mg - monitor blood pressure - continue PT/OT/speech - will discharge to rehab when stable Hypertensive Urgency 09/11 - increase Lisinopril to 20mg and add low dose Coreg today - can d/c to [facility] today and monitor BP as outpatient 09/10 - patient presented with hypertensive urgency with BP > 200/100 - stopped taking her home medications of Lisinopril and metoprolol - renal ultrasound performed - no renal artery stenosis noted - due to bradycardia, metoprolol stopped - will stop PRN clonidine - add Lisinopril 10mg and monitor BP Tobacco Use Disorder - smokes 2-3 cigarettes per day - okay with plan to stop smoking Nondisplaced L Patellar Fracture - appreciate ortho input - maintain immobilizer as per orthopedic surgery; weight-bearing as tolerated - Follow-up with orthopedic surgery in 2 weeks - discharge to inpatient rehab Possible UTI - urine culture - many organisms growing, likely mixed skin carlos manuel - currently on Rocephin x3 days - asymptomatic bacteruria - can likely d/c antibiotics on discharge DVT ppx - subq heparin FULL CODE
[2017-09-11] MEDS ORDERED: LISINOPRIL 10 MG TAB PO SCH (09:00)
[2017-09-11] MEDS ORDERED: CARVEDILOL 3.125 MG TAB PO SCH (09:00)
[2017-09-11] MEDS ORDERED: LISI-725 PO (11:15)
[2017-09-11] MEDS ORDERED: ASPI-320 PO (11:15)
[2017-09-11] MEDS ORDERED: LPT40 PO (11:15)
[2017-09-11] MEDS ORDERED: PLV75 PO (11:15)
--- NOTE | 2017-09-11 11:20 | Discharge Instructions ---
Discharge Instructions Date of Service Sep 11, 2017. Admission Reason for Admission: Hypertensive Urgency Discharge Discharge Diagnosis / Problem: Acute Stroke, High Blood Pressure Discharge Goals Goal(s): Decrease discomfort, Improve function, Diagnostic testing, Therapeutic intervention Activity Recommendations Activity Limitations: resume your previous activity Lifting Limitations: none Exercise/Sports Limitations: none May Resume Sexual Activity: when tolerated Shower/Bathe: no limitations Driving or Machine Use: . Instructions / Follow-Up Instructions / Follow-Up Please follow-up with your primary care physician after stay at nursing facility /[facility] Please follow-up with neurology as an outpatient * You will be discharged on aspirin and Plavix - take both of these for the next three months. After that, you can stop the Plavix * You will be discharged on Lipitor - take this indefinitely * You will be started on Lisinopril for blood pressure - blood pressure should be checked periodically at [facility] and medications adjusted accordingly Risk Factors for Stroke: You can reduce your chances of stroke by working with your medical provider to adopt a healthy lifestyle. Some specific ways to lower your chance of stroke are: * If you are a smoker, now is the time to stop smoking cigarettes * If you are diabetic, improve the control of your blood sugars * Avoid excessive amounts of alcohol * Control high blood pressure * Lose weight if you are overweight * Be sure to lead an active lifestyle * Eat a healthy diet low in salt, cholesterol and fat You should know about other risk factors for stroke that you are unable to control. These include: * Age 55 years or older * Male gender * Certain racial groups: , or / * Family History of Stroke, Mini stroke or Heart Attack * Sickle Cell Disease Follow Up: It is important for you to keep your follow up appointments with your medical provider. Current Hospital Diet Patient's current hospital diet: AHA Diet (Heart Healthy) Discharge Diet Recommended Diet: AHA Diet (Heart Healthy) Pending Studies Studies pending at discharge: no Laboratory Results Hemoglobin A1c Test 09/07/17 05:48 Range/Units Estimated Average Glucose 100 mg/dl Hemoglobin A1c 5.1 4.5-5.6 % Lipid Panel Test 09/07/17 05:48 Range/Units Triglycerides Level 107 0-150 mg/dl Cholesterol Level 147 0-200 mg/dl HDL Cholesterol 47 mg/dl Cholesterol/HDL Ratio 3.1 LDL Cholesterol, Calculated 79 mg/dl Medical Emergencies . Who to Call and When: Medical Emergencies: Call 911 immediately if you experience any of the following warning signs and symptoms of Stroke: * Sudden numbness or weakness of the face, arm or leg, especially on one side of the body * Sudden confusion, trouble speaking or understanding * Sudden trouble seeing in one or both eyes * Sudden trouble walking, dizziness, loss of balance or coordination * Sudden severe headache with no cause Do not delay calling 911 if you experience any warning signs or symptoms of a stroke. Delay in seeking medical attention may affect what treatments can be given to you. . Non-Emergent Contact Non-Emergency issues call your: Primary Care Provider, Neurologist . . "Provider Documentation" section prepared by Taisha Bennett. . Weatherization Administrator Recommendations Weatherization Administrator Recommendations: Radiographs are reviewed. May be WBAT in knee immobilizer. Follow up as an outpatient with either Dr. Godoy, Baldo Almodovar Rog[place], Antholtz or Javier Stroke Core Measures Reason no t-PA for Stroke: Treatment not indicated Reason no antithrom by day 2: Treatment provided - N/A Reason no antithrom at D/C: Treatment provided - N/A Reason no statin at D/C: Treatment provided - N/A Reason no anticoag w/a fib: Treatment not indicated
--- NOTE | 2017-09-11 11:22 | Discharge Summary ---
Discharge Summary Date of Service Sep 11, 2017. Discharge Summary Admission Date: Sep 04, 2017 at 17:04 Discharge Date: Sep 11, 2017 Discharge Disposition: [facility] Principal Diagnosis: Acute R CHANGE ANALYST Territory Infarct Acute and Chronic Bilateral Lacunar Infarcts Hypertensive Urgency Medication Reconciliation New Medications: Aspirin (Aspirin EC Low Dose) 81 Mg Ectab 81 MG PO DAILY for 30 Days, #30 TABS 2 Refills Atorvastatin (Lipitor) 40 Mg Tab 40 MG PO QAM for 30 Days, #30 TAB 2 Refills Clopidogrel Bisulfate (Clopidogrel) 75 Mg Tab 75 MG PO QAM for 30 Days, #30 TAB 2 Refills Lisinopril (Zestril) 20 Mg Tab 20 MG PO DAILY for 30 Days, #30 TAB Admission Information HPI (per Admitting provider): 67-year-old female who presents to the ED after suffering a fall and developing left knee pain. Patient was here at the hospital visiting her grandchild. She was walking down the [place] when suddenly her legs give out from under her and she fell landing on her left knee. Patient denies any loss of consciousness or associated lightheadedness or dizziness. No chest pain or shortness of breath. She denies headache and blurred vision. She reports she has been feeling well recently. Patient does report that she self stopped her blood pressure medications over a year ago. No abdominal pain, nausea, vomiting , or diarrhea. She denies fever and chills. No urinary symptoms. In the ED, patient is found to have an acute nondisplaced left patellar fracture. She is also found to have significantly elevated blood pressures with systolics in the 220s. She was given labetalol 10 mg IV without much improvement. I then ordered hydralazine 10 mg IV and blood pressure is slowly starting to come down. Physical Exam (per Admitting): General Appearance: WD/WN, no apparent distress, + thin Head: normocephalic, atraumatic Eyes: normal inspection, EOMI, sclerae normal ENT: hearing grossly normal, + pertinent finding (Mucous membranes moist) Neck: supple, no JVD, trachea midline Respiratory/Chest: lungs clear, normal breath sounds, no respiratory distress Cardiovascular: regular rate, rhythm, no edema, normal peripheral pulses Abdomen/GI: normal bowel sounds, non tender, soft, no organomegaly Extremities/Musculoskelatal: no calf tenderness, normal capillary refill, + pertinent finding (immobilizer in place to left lower extremity) Neurologic/Psych: no motor/sensory deficits, alert, normal mood/affect, oriented x 3 Skin: normal color, warm/dry Hospital Course This is a 67 year old female with a past medical history of hypertension; patient stopped taking medications for this - presented with syncope and subsequently found to have an acute CHANGE ANALYST territory stroke and lacunar infarct; found to be in hypertensive urgency as well as an acute nondisplaced patellar fracture. Acute R CHANGE ANALYST territory CVA Acute and Chronic Bilateral Lacunar Infarcts 09/11 - patient is doing well - will continue aspirin + Plavix x3 months, then aspirin for life - continue Lipitor - PT/OT/speech 09/10 - Brain MRI on 09/06 suggests acute CHANGE ANALYST territory infarct as well as acute and chronic lacunar infarcts - high blood pressure is likely the culprit as patient stopped taking her medications; other risk factors including tobacco use history - appreciate neurology input - will be on aspirin + Plavix x 3 months; then just aspirin 81mg for life - continue Lipitor - d/c PRN clonidine - adding Lisinopril 10mg - monitor blood pressure - continue PT/OT/speech - will discharge to rehab when stable Hypertensive Urgency 09/11 - increase Lisinopril to 20mg and add low dose Coreg today - can d/c to [facility] today and monitor BP as outpatient 09/10 - patient presented with hypertensive urgency with BP > 200/100 - stopped taking her home medications of Lisinopril and metoprolol - renal ultrasound performed - no renal artery stenosis noted - due to bradycardia, metoprolol stopped - will stop PRN clonidine - add Lisinopril 10mg and monitor BP Tobacco Use Disorder - smokes 2-3 cigarettes per day - okay with plan to stop smoking Nondisplaced L Patellar Fracture - appreciate ortho input - maintain immobilizer as per orthopedic surgery; weight-bearing as tolerated - Follow-up with orthopedic surgery in 2 weeks - discharge to inpatient rehab Possible UTI - urine culture - many organisms growing, likely mixed skin carlos manuel - currently on Rocephin x3 days - asymptomatic bacteruria - can likely d/c antibiotics on discharge DVT ppx - subq heparin FULL CODE Total time spent on discharge = 45 minutes This includes examination of the patient, discharge planning, medication reconciliation, and communication with other providers. Discharge Instructions Please follow-up with your primary care physician after stay at nursing facility /[facility] Please follow-up with neurology as an outpatient * You will be discharged on aspirin and Plavix - take both of these for the next three months. After that, you can stop the Plavix * You will be discharged on Lipitor - take this indefinitely * You will be started on Lisinopril for blood pressure - blood pressure should be checked periodically at [facility] and medications adjusted accordingly
[2017-09-11] MEDS: CEFTRIAXONE SOD INJ 1 GM in DEXTROSE 5% ADD-VANTAGE 50ML 50 ML IV SCH (12:18)
== END 2017-09-11 14:46 | DRG 65 ==
LOC: C.EDB 11:18 → C.2E 17:04 → ENRESERV 17:12
PROVIDERS: ADMIT Internal Medicine; ATTEND Family Medicine
DX: I63.8 Other cerebral infarction (principal); S82.002A Unspecified fracture of left patella, initial encounter for closed fracture; N39.0 Urinary tract infection, site not specified; F17.200 Nicotine dependence, unspecified, uncomplicated; I16.0 Hypertensive urgency; E11.9 Type 2 diabetes mellitus without complications; W19.XXXA Unspecified fall, initial encounter